=== PATIENT | female | born 1935 | race Asian ===

== ENCOUNTER → 2020-05-05 08:33 | Outpatient (ROUT) | payer MEDICARE, OTHER, MEDICAID, SELFPAY ==
[2020-05-05 09:59] LABS: Add Manual Diff / Slide Review NO; Basophils Absolute Auto 0 /uL (0-100); Basophils Percent Auto 0.7 % (0-2); Eosinophils Absolute Auto 100 /uL (0-450); Eosinophils Percent Auto 1.7 % (2-4); Hematocrit 40.3 % (36-46); Hemoglobin 13.5 g/dL (12.0-16.0); Lymphocytes Absolute Auto 1400 /uL (1100-4500); Lymphocytes Percent Auto 27.6 % (25-40); Mean Corpuscular HGB Conc 33.5 % (30-36); Mean Corpuscular Hemoglobin 32.8 PG (26-34); Mean Corpuscular Volume 97.8 fL (80-100); Monocytes Absolute Auto 400 /uL (0-900); Monocytes Percent Auto 7.6 % (3-14); Neutrophils Absolute Auto 3200 /uL (1500-7000); Neutrophils Percent Auto 62.4 % (50-75); Platelet Count 199 X10^3/uL (150-400); Red Blood Cell Count 4.12 X10^6/uL (4.0-5.2); Red Cell Distribution Width 14.1 % (11.6-14.8); White Blood Cell Count 5.1 X10^3/uL (4.5-11.0)
[2020-05-05 10:22] LABS: Alanine Aminotransferase 42 IU/L (<35); Albumin Globulin Ratio 1.3 (1.0-2.8); Alkaline Phosphatase 50 U/L (38-126); Aspartate Aminotransferase 40 IU/L (14-36); BUN Creatinine Ratio 25.8 (6-22); Bilirubin Total 0.6 mg/dL (0.2-1.3); Blood Urea Nitrogen 16 mg/dL (7-17); Calcium 9.4 mg/dL (8.4-10.2); Carbon Dioxide 29 mmol/L (22-32); Chloride 105 mmol/L (98-107); Cholesterol 223 mg/dL (140-199); Estimated Glomerular Filt Rate > 60.0 mL/min (>60); Globulin 3.1 g/dL (1.7-4.1); Glucose 90 mg/dL (80-110); HDL Cholesterol 81 mg/dL (40-60); HEMOLYSIS < 15 (0-50); LDL Cholesterol Calculated 123 mg/dL (<100); Potassium 3.8 mmol/L (3.4-5.1); Sodium 141 mmol/L (137-145); Total Protein 7.1 g/dL (6.3-8.2); Triglycerides 97 mg/dL (35-150)
[2020-05-05 10:50] LABS: Thyroid Stimulating Hormone 1.77 uIU/mL (0.47-4.68)
[2020-05-05 11:06] LABS: Vitamin B12 408 pg/mL (239-931)
== END ==
PROVIDERS: PCP Internal Medicine; Visit Provider Nurse Practitioner Family
DX: E03.9 Hypothyroidism, unspecified (principal); R41.89 Other symptoms and signs involving cognitive functions and awareness
CPT/HCPCS: 36415; 80053; 80061; 82607; 84443; 85025

== ENCOUNTER → 2020-05-08 12:48 | Outpatient (ROUT) | payer MEDICARE, OTHER, MEDICAID, SELFPAY ==
[2020-05-09 10:08] LABS: COVID19 Sendout Not Detected (Not Detected)
== END ==
PROVIDERS: PCP Internal Medicine; Visit Provider Internal Medicine
DX: Z11.59 Encounter for screening for other viral diseases (principal)
CPT/HCPCS: 87635

== ENCOUNTER 2020-07-25 19:01 | Emergency (ER) | payer OTHER, MEDICARE, MEDICAID, SELFPAY ==
[2020-07-25 19:21] VITALS: BP 199/81; PULSE 55; RESP 15; TEMP 36.6; O2SAT 100; BMI 16.6
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
[2020-07-25 21:00] VITALS: BP 224/93; PULSE 63; O2SAT 100
[2020-07-25 21:02] VITALS: BP 192/79; PULSE 57; RESP 16; O2SAT 99
[2020-07-25 21:19] VITALS: BP 182/73; PULSE 53; RESP 16; O2SAT 100
[2020-07-25 21:30] VITALS: BP 165/73; PULSE 56; RESP 16; O2SAT 100
== END 2020-07-25 21:58 | disposition home or self-care (01) ==
PROVIDERS: Emergency Provider Emergency Medicine; PCP Internal Medicine; Referring Provider Internal Medicine
DX: S00.03XA Contusion of scalp, initial encounter (principal); M54.2 Cervicalgia; W18.00XA Striking against unspecified object with subsequent fall, initial encounter; I10 Essential (primary) hypertension
CPT/HCPCS: 70450; 72125; 99284

== ENCOUNTER → 2020-11-17 10:13 | Outpatient (ROUT) | payer MEDICARE, OTHER, MEDICAID, SELFPAY ==
[2020-11-17 11:43] LABS: Add Manual Diff / Slide Review NO; Basophils Absolute Auto 100 /uL (0-100); Basophils Percent Auto 1.2 % (0-2); Eosinophils Absolute Auto 100 /uL (0-450); Eosinophils Percent Auto 3.2 % (2-4); Hematocrit 41.7 % (36-46); Hemoglobin 13.9 g/dL (12.0-16.0); Lymphocytes Absolute Auto 1400 /uL (1100-4500); Lymphocytes Percent Auto 32.3 % (25-40); Mean Corpuscular HGB Conc 33.4 % (30-36); Mean Corpuscular Hemoglobin 32.3 PG (26-34); Mean Corpuscular Volume 96.8 fL (80-100); Monocytes Absolute Auto 300 /uL (0-900); Monocytes Percent Auto 7.3 % (3-14); Neutrophils Absolute Auto 2400 /uL (1500-7000); Platelet Count 197 X10^3/uL (150-400); Red Blood Cell Count 4.31 X10^6/uL (4.0-5.2); Red Cell Distribution Width 14.1 % (11.6-14.8); White Blood Cell Count 4.4 X10^3/uL (4.5-11.0)
[2020-11-17 12:06] LABS: Alanine Aminotransferase 18 IU/L (<35); Albumin 4.2 g/dL (3.5-5.0); Albumin Globulin Ratio 1.4 (1.0-2.8); Alkaline Phosphatase 41 U/L (38-126); Aspartate Aminotransferase 31 IU/L (14-36); BUN Creatinine Ratio 25.4 (6-22); Bilirubin Total 0.6 mg/dL (0.2-1.3); Blood Urea Nitrogen 16 mg/dL (7-17); Calcium 9.5 mg/dL (8.4-10.2); Carbon Dioxide 29 mmol/L (22-32); Chloride 103 mmol/L (98-107); Cholesterol 246 mg/dL (140-199); Estimated Glomerular Filt Rate > 60.0 mL/min (>60); Globulin 3.1 g/dL (1.7-4.1); Glucose 90 mg/dL (80-110); HDL Cholesterol 77 mg/dL (40-60); HEMOLYSIS < 15 (0-50); LDL Cholesterol Calculated 146 mg/dL (<100); Potassium 3.8 mmol/L (3.4-5.1); Sodium 140 mmol/L (137-145); Total Protein 7.3 g/dL (6.3-8.2); Triglycerides 115 mg/dL (35-150)
[2020-11-17 13:48] LABS: Thyroid Stimulating Hormone 1.06 uIU/mL (0.47-4.68)
== END ==
PROVIDERS: PCP Internal Medicine; Visit Provider Internal Medicine
DX: E05.90 Thyrotoxicosis, unspecified without thyrotoxic crisis or storm (principal); E78.5 Hyperlipidemia, unspecified
CPT/HCPCS: 36415; 80053; 80061; 84443; 85025

== ENCOUNTER → 2021-03-10 17:21 | Outpatient (CLI) | payer MEDICARE, OTHER, MEDICAID, SELFPAY ==
[2021-03-10 18:19] LABS: Add Manual Diff / Slide Review NO; Basophils Absolute Auto 0 /uL (0-100); Eosinophils Absolute Auto 300 /uL (0-450); Eosinophils Percent Auto 5.6 % (2-4); Hematocrit 39.6 % (36-46); Lymphocytes Absolute Auto 1300 /uL (1100-4500); Lymphocytes Percent Auto 28.2 % (25-40); Mean Corpuscular HGB Conc 32.9 % (30-36); Mean Corpuscular Volume 97.2 fL (80-100); Monocytes Absolute Auto 400 /uL (0-900); Monocytes Percent Auto 9.7 % (3-14); Neutrophils Absolute Auto 2500 /uL (1500-7000); Neutrophils Percent Auto 55.5 % (50-75); Platelet Count 196 X10^3/uL (150-400); Red Blood Cell Count 4.08 X10^6/uL (4.0-5.2); Red Cell Distribution Width 13.9 % (11.6-14.8); White Blood Cell Count 4.6 X10^3/uL (4.5-11.0)
[2021-03-10 18:22] LABS: Alanine Aminotransferase 17 IU/L (<35); Albumin Globulin Ratio 1.3 (1.0-2.8); Alkaline Phosphatase 60 U/L (38-126); Aspartate Aminotransferase 29 IU/L (14-36); BUN Creatinine Ratio 28.1 (6-22); Bilirubin Total 0.7 mg/dL (0.2-1.3); Blood Urea Nitrogen 18 mg/dL (7-17); Calcium 9.6 mg/dL (8.4-10.2); Carbon Dioxide 27 mmol/L (22-32); Chloride 105 mmol/L (98-107); Estimated Glomerular Filt Rate > 60.0 mL/min (>60); Globulin 3.1 g/dL (1.7-4.1); Glucose 102 mg/dL (80-110); HEMOLYSIS < 15 (0-50); Potassium 4.2 mmol/L (3.4-5.1); Sodium 139 mmol/L (137-145); Total Protein 7.1 g/dL (6.3-8.2)
[2021-03-10 18:52] LABS: Thyroid Stimulating Hormone 0.159 uIU/mL (0.47-4.68)
== END ==
PROVIDERS: PCP Internal Medicine; Referring Provider Nurse Practitioner Family; Visit Provider Nurse Practitioner Family
DX: I45.9 Conduction disorder, unspecified; I49.9 Cardiac arrhythmia, unspecified
CPT/HCPCS: 36415; 80053; 84443; 85025; 93005

== ENCOUNTER → 2021-04-15 10:17 | Outpatient (CLI) | payer MEDICARE, MEDICAID, OTHER, SELFPAY | PROVIDERS: PCP Internal Medicine; Referring Provider Internal Medicine; Visit Provider Internal Medicine | DX: E04.2 Nontoxic multinodular goiter (principal); Z53.20 Procedure and treatment not carried out because of patient's decision for unspecified reasons ==

== ENCOUNTER → 2021-04-20 07:59 | Outpatient (ROUT) | payer MEDICARE, MEDICAID, OTHER, SELFPAY ==
[2021-04-20 09:16] LABS: Thyroid Stimulating Hormone 3.49 uIU/mL (0.47-4.68)
== END ==
PROVIDERS: PCP Internal Medicine; Visit Provider Nurse Practitioner Family
DX: E03.9 Hypothyroidism, unspecified (principal)
CPT/HCPCS: 36415; 84443

== ENCOUNTER → 2021-04-21 11:02 | Outpatient (CLI) | payer MEDICARE, OTHER, MEDICAID, SELFPAY ==
--- NOTE | 2021-04-21 | DI.US.S_ITS ---
PROCEDURE: US THYROID INDICATIONS: MULTIPLE THYROID NODULES TECHNIQUE: Real-time scanning was performed of the thyroid gland, with image documentation. COMPARISON: [facility], CT, CT CERVICAL SPINE WO CON, 07/25/2020, 21:02. FINDINGS: Right: Thyroid lobe measures 2.8 x 0.5 x 0.8 cm, and is homogeneous in echotexture. Left: Thyroid lobe measures 2.1 x 0.3 x 0.9 cm, and is homogenous in echotexture. Isthmus: 1.1 mm thick. IMPRESSION: Atrophic thyroid and no focal nodule seen. Dictated by: Gage Mireles [facility] Interpreted: Binu Pabon MD on 04/21/2021 at 11:42 Transcribed by: ANNA on 04/21/2021 at 11:43 Approved by: Binu Pabon M.D. on 04/21/2021 at 12:58
== END ==
PROVIDERS: PCP Internal Medicine; Referring Provider Internal Medicine; Visit Provider Internal Medicine
DX: E03.9 Hypothyroidism, unspecified (principal); E04.2 Nontoxic multinodular goiter
CPT/HCPCS: 76536

== ENCOUNTER 2021-08-09 19:29 | Emergency (ER) | payer MEDICARE, OTHER, MEDICAID, SELFPAY ==
[2021-08-09 19:33] VITALS: BP 196/81; PULSE 60; O2SAT 97
[2021-08-09 19:36] VITALS: BP 196/81; PULSE 60; RESP 16; TEMP 36.2; O2SAT 97; BMI 21.2
--- NOTE | 2021-08-09 19:42 | DI.RAD.S_ITS ---
PROCEDURE: XR HIP W PEL IF DONE RT 2V INDICATIONS: fall TECHNIQUE: AP pelvis with lateral view(s) of the right hip(s). COMPARISON: [facility], CR, XR FEMUR RT MIN 2V, 08/09/2021, 19:43. FINDINGS: Bones: Right superior and inferior pubic rami fractures with mild displacement. No hip fracture or dislocations. No widening of the pubic symphysis. Pelvic ring appears intact. No suspicious bony lesions. Soft tissues: The visualized bowel gas pattern is normal. No suspicious soft tissue calcifications. Calcification in the pelvis. Likely a calcified fibroid. Vascular calcifications. IMPRESSION: Right superior and inferior pubic rami fractures with mild displacement. Consider CT bony pelvis for further evaluation. Dictated by: Nick Buitrago M.D. on 08/09/2021 at 21:02 Approved by: Nick Buitrago M.D. on 08/09/2021 at 21:04
--- NOTE | 2021-08-09 19:42 | DI.CT.S_ITS ---
PROCEDURE: CT HEAD/BRAIN WO CON INDICATIONS: fall TECHNIQUE: Noncontrast 4.5 mm thick angled axial sections acquired from the foramen magnum to the vertex, with coronal and sagittal reformats. For radiation dose reduction, the following was used: automated exposure control, adjustment of mA and/or kV according to patient size. COMPARISON: [facility], CT, CT HEAD/BRAIN WO CON, 07/25/2020, 21:02. FINDINGS: Image quality: Excellent. CSF spaces: Basal cisterns are patent. No extra-axial fluid collections. Ventricles are normal in size and shape. Brain: No midline shift. No intracranial masses or hemorrhage. No area of hypodensity in a large vascular distribution to suggest acute infarction. Periventricular hypodensity consistent with chronic microvascular ischemic change. Age-related parenchymal loss. Skull and face: Small right parietal scalp hematoma. No underlying fracture. Calvarium and visualized facial bones are intact, without suspicious lesions. Sinuses: Visualized sinuses and mastoids are clear. IMPRESSION: No acute intracranial abnormality. Small right parietal scalp hematoma. Dictated by: Nick Buitrago M.D. on 08/09/2021 at 20:47 Approved by: Nick Buitrago M.D. on 08/09/2021 at 20:48
--- NOTE | 2021-08-09 19:42 | DI.RAD.S_ITS ---
PROCEDURE: XR FEMUR RT MIN 2V INDICATIONS: fall TECHNIQUE: 4 views of the femur were acquired. COMPARISON: [facility], CR, XR HIP W PEL IF DONE RT 2V, 08/09/2021, 19:43. FINDINGS: Bones: No right femur fracture. No suspicious bony lesions. Soft tissues: No suspicious soft tissue calcifications or masses. Vascular calcifications. IMPRESSION: No right femur fracture. Dictated by: Nick Buitrago M.D. on 08/09/2021 at 21:00 Approved by: Nick Buitrago M.D. on 08/09/2021 at 21:02
[2021-08-09 21:06] VITALS: BP 204/84; PULSE 55; O2SAT 91
[2021-08-09 21:30] VITALS: PULSE 57; O2SAT 97
[2021-08-09] MEDS: HYDROCODONE/ACET 5/325 TABLET 1 TAB PO (21:31)
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
[2021-08-09] MEDS: TRAMADOL 50 MG PREPACK 1 BOTTLE MISC (21:49)
--- NOTE | 2021-08-09 22:32 | PC.NURSE ---
report called to [facility]. daughter Jessie came to pick pt up. pt assisted out to vehicle in wheelchair. tolerated well.
== END 2021-08-09 22:33 | disposition home or self-care (01) ==
PROVIDERS: Emergency Provider Emergency Medicine; PCP Internal Medicine
DX: S32.511A Fracture of superior rim of right pubis, initial encounter for closed fracture (principal); S32.591A Other specified fracture of right pubis, initial encounter for closed fracture; S00.03XA Contusion of scalp, initial encounter; Y04.2XXA Assault by strike against or bumped into by another person, initial encounter
CPT/HCPCS: 70450; 73502; 73552; 99284

== ENCOUNTER 2021-08-21 08:38 | Emergency (ER) | payer MEDICARE, OTHER, MEDICAID, SELFPAY ==
[2021-08-21] VITALS (21 sets, daily range): BP systolic 170–225; BP diastolic 75–91; PULSE 60–79; RESP 12–23; TEMP 36.6; O2SAT 93–100; BMI 18.9
--- NOTE | 2021-08-21 08:44 | DI.CT.S_ITS ---
PROCEDURE: CT CERVICAL SPINE WO CON INDICATIONS: fall TECHNIQUE: Noncontrast 3 mm thick sections acquired from the skull base to the T4 level. Sagittal and coronal reformats were then constructed. For radiation dose reduction, the following was used: automated exposure control, adjustment of mA and/or kV according to patient size. COMPARISON: [facility], CT, CT CERVICAL SPINE WO CON, 07/25/2020, 21:02. FINDINGS: Image quality: Excellent. Bones: No fractures or dislocations. Stable degenerative retrolisthesis of C5 on C6. Multilevel degenerative changes of the spine not significantly changed from comparison. Multiple levels of very mild spinal canal stenosis worse at C3-C4 through C5-C6. Multiple levels of mild bony neural foraminal stenosis. Visualized superior ribs are intact. Soft tissues: Prevertebral soft tissues are normal in thickness. No paravertebral hematomas. No apical pneumothoraces. Diminutive appearance of the thyroid gland versus surgically absent. Diffuse vascular calcifications noted throughout the imaged vasculature. There is is worse at the carotid bifurcations. IMPRESSION: No acute fracture or traumatic subluxation. Multilevel cervical spondylopathy. Dictated by: Diony Jhaveri D.O. on 08/21/2021 at 8:37 Approved by: Diony Jhaveri D.O. on 08/21/2021 at 8:43
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
--- NOTE | 2021-08-21 08:44 | ED.FALL ---
HPI - Fall General Chief Complaint: Fall Stated Complaint: GLF Time Seen by Provider: 08/21/21 08:44 Source: patient Mode of arrival: EMS Limitations: altered mental status (dementia) History of Present Illness HPI Narrative: This is a 86-year-old female with known dementia, history of dyslipidemia, on aspirin daily and a prior pelvic fracture with fracture of the right superior and inferior pubic rami. Patient had a ground level fall which was 1 witnessed. Patient does have dementia but states that she slipped on a piece of fabric or something on the floor and fell backwards. She does not think that she hit her head. She denies any neck pain or upper back pain but does have some right hip/lower back discomfort. Patient has good range of motion. She denies any numbness or tingling. She denies any chest pain, shortness of breath or nausea or vomiting. She is able to tell me she takes a cholesterol medication. She denies any prior surgeries herself. Her medication list indicates she also has a history of hypothyroidism and takes [place] and lorazepam regularly. Patient lives at a care facility. Related Data Allergies Allergy/AdvReac Type Severity Reaction Status Date / Time No Known Drug Allergies Allergy Verified 07/25/20 19:21 Review of Systems Review of Systems ROS Unobtainable: Unobtainable due to medical condition Patient History Social History marital status: Smoking Status: Never smoker Exam Narrative Exam Narrative: GEN: C-collar prior to arrival. Patient appears in mild distress. HEAD: No evidence of trauma, no raccoon/Mcguire sign. NECK: Nontender, painless range of motion, trachea midline Positive Nexus criteria, no mid line tenderness, distracting injury, altered mental status-patient has dementia but per report is at baseline, neuro deficit, recent EtOH. EYES: PERRLA, EOMI ENT: External inspection alf except for a very small superficial laceration at the corner of the right edge of the mouth. There is a small amount of dried blood, trachea is midline, TM's are normal no hemotypanum, Nares are clear, no septal hematoma, no dental or oral injury, airway is normal and with normal occlusion, No bony tenderness RESP: Chest is nontender and has symmetric movement, no ecchymosis, breath sounds are normal no crackles, wheezes or rales CVS: Heart sounds are normal, no murmur noted, No JVD. ABG/GI: Nontender, soft, normal bowel sounds, no distention, no organomegaly, pelvic rock is negative NEURO: Oriented AOx3, neuro is grossly intact, sensation and motor is normal all 4 extremities moving, cranial nerves II through XII are intact, GCS is[default value] PSYCH: Normal mood and affect SKIN: Intact, warm and dry, no crepitus and without decubitus BACK: No CVA tenderness, no vertebral tenderness, no step-off's, no crepitus EXT: Atraumatic, hips are nontender palpation, no pedal edema, normal color and temperature, normal range of motion of extremities with normal tendon exam, 2+ pulses in all four extremities Initial Vital Signs Initial Vital Signs: Vital Signs Temperature 97.8 F 08/21/21 08:36 Pulse Rate 65 08/21/21 08:36 Respiratory Rate 18 08/21/21 08:36 Blood Pressure 206/91 H 08/21/21 08:36 Pulse Oximetry 99 08/21/21 08:36 Scores GCS Cary coma scale eye opening: Spontaneous Cary coma scale verbal response: Confused Cary coma scale motor response: Obey commands Cary coma scale total score: 14 Course Orders Ordered: ED Orders 08/21/21 08:44 CT cervical spine wo con Stat CT head/brain wo con Stat XR hip w pel if done RT 2V Stat 08/21/21 09:51 CT pelvis wo con Stat 08/21/21 10:00 BMP [Basic Metabolic Panel] Stat CBC Auto Diff [Complete Blood Count AUTO DIFF] Stat Discontinued Medications Hydrocodone Bitart/Acetaminophen (Hydrocodone/Acet 5/325 Tablet) 1 tab PO NOW ONE Stop: 08/21/21 08:51 Last Admin: 08/21/21 09:00 Dose: 1 tab Documented by: [facility] Consultations Consultation #1: Dr. Cuevas, orthopedic surgery. Images reviewed. Toe touch on right side weightbearing with walker. If cannot do that then failing sometimes [facility] will consider putting in an SI screw but this would only if patient continues to be failing. Would be unlikely to place a screw and based on patient's history they may still not in the future. Vital Signs Vital signs: Vital Signs - 8 hr 08/21/21 08:36 08/21/21 08:46 08/21/21 08:48 Temperature 97.8 F Pulse Rate 65 68 67 Respiratory Rate 18 14 Blood Pressure 206/91 H 225/89 H Pulse Oximetry 99 98 99 08/21/21 08:49 08/21/21 09:00 08/21/21 09:23 Temperature Pulse Rate 71 74 63 Respiratory Rate 14 16 13 Blood Pressure 206/91 H 197/86 H 201/84 H Pulse Oximetry 99 96 99 08/21/21 09:30 08/21/21 09:45 08/21/21 10:00 Temperature Pulse Rate 66 74 70 Respiratory Rate 18 18 18 Blood Pressure 190/77 H 170/75 H Pulse Oximetry 99 100 100 08/21/21 10:16 08/21/21 10:30 08/21/21 10:32 Temperature Pulse Rate 79 75 66 Respiratory Rate 21 20 Blood Pressure Pulse Oximetry 99 93 99 08/21/21 10:34 08/21/21 10:46 08/21/21 10:55 Temperature Pulse Rate 67 71 72 Respiratory Rate 20 23 21 Blood Pressure 197/80 H 184/78 H Pulse Oximetry 99 100 100 08/21/21 11:00 08/21/21 11:30 08/21/21 12:00 Temperature Pulse Rate 70 72 69 Respiratory Rate 13 12 22 Blood Pressure 176/77 H Pulse Oximetry 98 99 99 08/21/21 12:54 08/21/21 12:55 08/21/21 13:00 Temperature Pulse Rate 62 60 Respiratory Rate 21 14 Blood Pressure 195/82 H Pulse Oximetry 95 99 100 - Fall Lab Data Result diagrams: 08/21/21 10:00 08/21/21 10:00 Labs: Lab Results 08/21/21 08/21/21 Range/Units 10:00 10:00 WBC 9.9 (4.5-11.0) X10^3/uL RBC 3.69 L (4.0-5.2) X10^6/uL Hgb 12.0 (12.0-16.0) g/dL Hct 35.5 L (36-46) % MCV 96.2 (80-100) fL MCH 32.5 (26-34) PG MCHC 33.7 (30-36) % RDW 13.9 (11.6-14.8) % Plt Count 388 (150-400) X10^3/uL Neut % (Auto) 80.0 H (50-75) % Lymph % (Auto) 12.2 L (25-40) % Gibson % (Auto) 6.9 (3-14) % Eos % (Auto) 0.5 L (2-4) % Baso % (Auto) 0.4 (0-2) % Neut # (Auto) 7900 H (9726-4365) /uL Lymph # (Auto) 1200 (5874-9292) /uL Gibson # (Auto) 700 (0-900) /uL Eos # (Auto) 0 (0-450) /uL Baso # (Auto) 0 (0-100) /uL Sodium 136 L (137-145) mmol/L Potassium 3.9 (3.4-5.1) mmol/L Chloride 101 (98-107) mmol/L Carbon Dioxide 31 (22-32) mmol/L BUN 21 H (7-17) mg/dL Creatinine 0.66 (0.52-1.04) mg/dL Estimated GFR > 60.0 (>60) mL/min BUN/Creatinine Ratio 31.8 H (6-22) Glucose 128 H (80-110) mg/dL Calcium 9.2 (8.4-10.2) mg/dL Imaging Data CT scan - head: Radiologist's Impression: [address] [address] [address] Scan Report Signed Patient: Nadeen Liz MR#: [id number] : 1935 Acct:[id number] Age/Sex: 86 / F Date of Service: 08/21/21 Loc: ED Accession Number: [id number] ?? Procedure: CT head/brain wo con Ordering Provider: Theresa Jimenes D.O. PROCEDURE:? CT HEAD/BRAIN WO CON ? INDICATIONS:? fall, hit head on asa ? TECHNIQUE:? Noncontrast 4.5 mm thick angled axial sections acquired from the foramen magnum to the vertex, with coronal and sagittal reformats.? For radiation dose reduction, the following was used:? automated exposure control, adjustment of mA and/or kV according to patient size.? ? COMPARISON:? [facility], CT, CT HEAD/BRAIN WO CON, 08/09/2021, 20:04. ? FINDINGS:? Image quality:? Excellent.? ? CSF spaces:? Basal cisterns are patent.? No extra-axial fluid collections.? The ventricles are symmetric in size and shape.? ? Brain:? No intracranial bleeds or masses.? There is cerebral volume loss for age, with resultant ventricular and sulcal prominence.? There are periventricular and deep white matter chronic small vessel ischemic changes.? There is intracranial internal carotid artery atherosclerosis.? ? Skull and face:? Calvarium and visualized facial bones appear intact, without suspicious lesions.? Small right parietal scalp hematoma again identified. ? Sinuses:? Visualized sinuses and mastoids are clear.? ? IMPRESSION:? ? No acute intracranial abnormality. ? Small right parietal scalp hematoma again visualized. ? Microvascular ischemic changes and cerebral volume loss. ? ? Dictated by: Diony Jhaveri D.O. on 08/21/2021 at 8:33 ? ? Approved by: Diony Jhaveri D.O. on 08/21/2021 at 8:37?? CT - cervical spine: Radiologist's Impression: Close Hip X-Ray (Signed) Jhaveri,Diony - 08/21/[address] (Signed) Jhaveri,Diony - 08/21/[address] (Signed) Jhaveri,Diony 08/21/21 Hip X-Ray (Signed) Call,Nick - 08/09/[address] (Signed) Call,Nick - 08/09/21 Femur X-Ray (Signed) Call,Nick 08/09/21 Thyroid Ultrasound (Signed) Damon Mireles - 04/21/[address] (Signed) Pritesh Padron - 07/25/[address] (Signed) Pritesh Padron - 07/25/20 Launch?[address] [address] [address] Scan Report Signed Patient: Nadeen Liz MR#: [id number] : 1935 Acct:[id number] Age/Sex: 86 / F Date of Service: 08/21/21 Loc: ED Accession Number: [id number] ?? Procedure: CT cervical spine wo con Ordering Provider: Theresa Jimenes D.O. PROCEDURE:? CT CERVICAL SPINE WO CON ? INDICATIONS:? fall ? TECHNIQUE:? Noncontrast 3 mm thick sections acquired from the skull base to the T4 level.? Sagittal and coronal reformats were then constructed.? For radiation dose reduction, the following was used:? automated exposure control, adjustment of mA and/or kV according to patient size.? ? COMPARISON:? [facility], CT, CT CERVICAL SPINE WO CON, 07/25/2020, 21:02. ? FINDINGS:? Image quality:? Excellent.? ? Bones:? No fractures or dislocations.? Stable degenerative retrolisthesis of C5 on C6.? Multilevel degenerative changes of the spine not significantly changed from comparison.? Multiple levels of very mild spinal canal stenosis worse at C3-C4 through C5-C6.? Multiple levels of mild bony neural foraminal stenosis.? Visualized superior ribs are intact.? ? Soft tissues:? Prevertebral soft tissues are normal in thickness.? No paravertebral hematomas.? No apical pneumothoraces.? Diminutive appearance of the thyroid gland versus surgically absent.? Diffuse vascular calcifications noted throughout the imaged vasculature.? There is is worse at the carotid bifurcations. ? ? IMPRESSION:? ? No acute fracture or traumatic subluxation. ? Multilevel cervical spondylopathy. ? ? Dictated by: Diony Jhaveri D.O. on 08/21/2021 at 8:37 ? ? Approved by: Diony Jhaveri D.O. on 08/21/2021 at 8:43 pelvis: Radiologist's Impression: [place] [address] XRay Report Signed Patient: Nadeen Liz MR#: [id number] : 1935 Acct:[id number] Age/Sex: 86 / F Date of Service: 08/21/21 Loc: ED Accession Number: [id number] ?? Procedure: XR hip w pel if done RT 2V Ordering Provider: Theresa Jimenes D.O. PROCEDURE:? XR HIP W PEL IF DONE RT 2V ? INDICATIONS:? fall, right hip pain, prior pelvic fx. normal movement ? TECHNIQUE:? To views of the hip were acquired.? ? COMPARISON:? [facility], CR, XR HIP W PEL IF DONE RT 2V, 08/09/2021, 19:43. ? FINDINGS:? ? Given differences in technique there is increased displacement of the previously noted fractures of the superior and inferior pubic ramus.? No additional fractures are identified.? Mild degenerative changes of the hips.? Vascular calcifications. ? IMPRESSION:? ? Increased displacement of the previously noted right superior and inferior pubic ramus fractures. ? ? Dictated by: Diony Jhaveri D.O. on 08/21/2021 at 8:31 ? ? Approved by: Diony Jhaveri D.O. on 08/21/2021 at 8:33?? pelvic CT: Radiologist's Impression: [place] [address] CT Scan Report Signed Patient: Nadeen Liz MR#: [id number] : 1935 Acct:[id number] Age/Sex: 86 / F Date of Service: 08/21/21 Loc: ED Accession Number: [id number] ?? Procedure: CT pelvis wo con Ordering Provider: Theresa Jimenes D.O. PROCEDURE:? CT PEL WO CON ? INDICATIONS:? fall, ? increased displacement on xray of prior fx. ? TECHNIQUE:? Noncontrast 3 mm axial sections acquired through the bony pelvis, with coronal and sagittal reformatting.? ? COMPARISON:? None. ? FINDINGS:? Image quality:? Excellent.? ? Bones:? There is displaced and comminuted fractures of the right superior and inferior pubic ramus.? This includes approximately 1.8 cm of inferior displacement of the superior pubic ramus and approximately 7 mm of posterior displacement of the inferior pubic ramus. ?There is mildly displaced fracturing of the right side of the sacrum extending into the sacroiliac joint.? No hip fracture identified.? Degenerative changes of the hips and spine. ? Soft tissues:? There is dense stool distending the distal sigmoid colon and rectum with wall thickening and adjacent inflammation concerning for stercoral colitis. Calcified uterus displaced by stool.? Diffuse vascular calcifications throughout the imaged vessels.? No aneurysm.? The bladder is decompressed.? ? ? IMPRESSION:? ? Displaced comminuted fractures of the right superior and inferior pubic ramus as well as displaced fracture of the right sacrum extending into the sacroiliac joint. ? 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 ? ? ? Dictated by: Diony Jhaveri D.O. on 08/21/2021 at 10:28 ? ? Approved by: Diony Jhaveri D.O. on 08/21/2021 at 10:35?? MDM Narrative Medical decision making narrative: This is an 86-year-old female comes to the emergency department for ground level fall. Patient has a history dementia and multiple falls. She has recent on 08/09/2021 diagnosed with right superior and inferior pubic rami fractures with mild displacement. Patient had unwitnessed fall today she states she slipped on something slippery on the ground such as a piece of cloth. Unclear if she had head injury she has a very small laceration at the edge of her mouth. But does not have any other obvious injury but patient does not recall. Head CT and C-spine were ordered. Patient was complaining of lower back pain but is nontender on exam and grabs at her right hip. She has good range of motion and this may be secondary to her pubic rami fractures but x-ray imaging was obtained. CT notes continued right inferior and superior pubic rami fractures right sacral fracture is noted. This was not appreciated on x-rays from today or prior so unclear if this is a new fracture or was already present. Patient has mild pain here in the department. Images were reviewed with Orthopedic surgery. She has had multiple falls even before she had her injury. They recommend toe-touch weight-bearing at this time. If patient tolerates this she does not require any additional intervention. If she has worsening symptoms she might potentially be a candidate for an SI joint screw but based on patient's history Dr. Anderson notes that this may not actually be offered. Discharge Plan Departure Patient Disposition: Home Clinical Impression: Closed fracture of right inferior pubic ramus, Closed fracture of right superior pubic ramus, Closed sacral fracture Instructions: DI for Pelvic Fracture Activity Restrictions/Additional Instructions: Your imaging today shows pubic rami fracture still present. A CT was performed and does show a sacral fracture. It is unclear if this is new or was present from her prior fall. It was discussed with Orthopedic surgery. Recommendations at this time include toe-touch weight-bearing and using a walker if patient is able to be compliant. If she has significantly worsening symptoms she MAY be a candidate for a screw to be placed in the SI joint. Continue pain medications as prescribed. Please return for new or worsening symptoms, increasing pain, weakness, loss of sensation, loss of bowel or bladder control or other concerning symptoms. Referrals: Melissa Cuevas MD [Physician] - Maylin Wilson MD [Primary Care Provider] -
[2021-08-21] MEDS: HYDROCODONE/ACET 5/325 TABLET 1 TAB PO (09:00)
--- NOTE | 2021-08-21 09:51 | DI.CT.S_ITS ---
PROCEDURE: CT PEL WO CON INDICATIONS: fall, ? increased displacement on xray of prior fx. TECHNIQUE: Noncontrast 3 mm axial sections acquired through the bony pelvis, with coronal and sagittal reformatting. COMPARISON: None. FINDINGS: Image quality: Excellent. Bones: There is displaced and comminuted fractures of the right superior and inferior pubic ramus. This includes approximately 1.8 cm of inferior displacement of the superior pubic ramus and approximately 7 mm of posterior displacement of the inferior pubic ramus. There is mildly displaced fracturing of the right side of the sacrum extending into the sacroiliac joint. No hip fracture identified. Degenerative changes of the hips and spine. Soft tissues: There is dense stool distending the distal sigmoid colon and rectum with wall thickening and adjacent inflammation concerning for stercoral colitis. Calcified uterus displaced by stool. Diffuse vascular calcifications throughout the imaged vessels. No aneurysm. The bladder is decompressed. IMPRESSION: Displaced comminuted fractures of the right superior and inferior pubic ramus as well as displaced fracture of the right sacrum extending into the sacroiliac joint. 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 Dictated by: Diony Jhaveri D.O. on 08/21/2021 at 10:28 Approved by: Diony Jhaveri D.O. on 08/21/2021 at 10:35
[2021-08-21 10:07] LABS: Add Manual Diff / Slide Review NO; Basophils Absolute Auto 0 /uL (0-100); Basophils Percent Auto 0.4 % (0-2); Eosinophils Absolute Auto 0 /uL (0-450); Eosinophils Percent Auto 0.5 % (2-4); Hematocrit 35.5 % (36-46); Lymphocytes Absolute Auto 1200 /uL (1100-4500); Lymphocytes Percent Auto 12.2 % (25-40); Mean Corpuscular HGB Conc 33.7 % (30-36); Mean Corpuscular Hemoglobin 32.5 PG (26-34); Mean Corpuscular Volume 96.2 fL (80-100); Monocytes Absolute Auto 700 /uL (0-900); Monocytes Percent Auto 6.9 % (3-14); Neutrophils Absolute Auto 7900 /uL (1500-7000); Platelet Count 388 X10^3/uL (150-400); Red Blood Cell Count 3.69 X10^6/uL (4.0-5.2); Red Cell Distribution Width 13.9 % (11.6-14.8); White Blood Cell Count 9.9 X10^3/uL (4.5-11.0)
[2021-08-21 10:18] LABS: BUN Creatinine Ratio 31.8 (6-22); Blood Urea Nitrogen 21 mg/dL (7-17); Calcium 9.2 mg/dL (8.4-10.2); Carbon Dioxide 31 mmol/L (22-32); Chloride 101 mmol/L (98-107); Estimated Glomerular Filt Rate > 60.0 mL/min (>60); Glucose 128 mg/dL (80-110); HEMOLYSIS < 15 (0-50); Potassium 3.9 mmol/L (3.4-5.1); Sodium 136 mmol/L (137-145)
--- NOTE | 2021-08-21 10:21 | PC.NURSE ---
brooke daughter [phone] update given over phone
--- NOTE | 2021-08-21 12:45 | PC.NURSE ---
Spoke with daughter, Hillary [phone]. Provided update. Called for S transport back to [facility] [place]. Spoke to Elvia @ [facility], gave nurse to nurse report. Elvia aware we recommend a walker, Elvia states pt will not use a walker. advised.
== END 2021-08-21 13:13 | disposition home or self-care (01) ==
PROVIDERS: Emergency Provider Emergency Medicine; PCP Internal Medicine
DX: S32.511A Fracture of superior rim of right pubis, initial encounter for closed fracture (principal); S32.591A Other specified fracture of right pubis, initial encounter for closed fracture; S32.10XA Unspecified fracture of sacrum, initial encounter for closed fracture; S01.411A Laceration without foreign body of right cheek and temporomandibular area, initial encounter; W01.0XXA Fall on same level from slipping, tripping and stumbling without subsequent striking against object, initial encounter; Z91.81 History of falling
CPT/HCPCS: 36415; 70450; 72125; 72192; 73502; 80048; 85025; 99284; 99285

== ENCOUNTER → 2021-12-09 17:26 | Outpatient (ROUT) | payer MEDICARE, OTHER, MEDICAID, SELFPAY ==
[2021-12-09 17:35] LABS: Add Manual Diff / Slide Review NO; Basophils Absolute Auto 100 /uL (0-100); Basophils Percent Auto 0.9 % (0-2); Eosinophils Absolute Auto 200 /uL (0-450); Eosinophils Percent Auto 3.6 % (2-4); Hematocrit 36.4 % (36-46); Hemoglobin 12.1 g/dL (12.0-16.0); Lymphocytes Absolute Auto 1600 /uL (1100-4500); Mean Corpuscular HGB Conc 33.3 % (30-36); Mean Corpuscular Hemoglobin 31.9 PG (26-34); Mean Corpuscular Volume 95.8 fL (80-100); Monocytes Absolute Auto 400 /uL (0-900); Monocytes Percent Auto 5.9 % (3-14); Neutrophils Absolute Auto 3800 /uL (1500-7000); Neutrophils Percent Auto 63.6 % (50-75); Platelet Count 247 X10^3/uL (150-400); Red Cell Distribution Width 13.7 % (11.6-14.8)
[2021-12-09 17:44] LABS: BUN Creatinine Ratio 23.1 (6-22); Blood Urea Nitrogen 15 mg/dL (7-17); Carbon Dioxide 25 mmol/L (22-32); Chloride 105 mmol/L (98-107); Estimated Glomerular Filt Rate > 60 mL/min (>60); Glucose 144 mg/dL (80-110); HEMOLYSIS < 15 (0-50); Potassium 4.2 mmol/L (3.4-5.1); Sodium 139 mmol/L (137-145)
[2021-12-09 18:15] LABS: Thyroid Stimulating Hormone 9.04 uIU/mL (0.47-4.68)
== END ==
PROVIDERS: PCP Internal Medicine; Visit Provider Internal Medicine
DX: R84 Abnormal findings in specimens from respiratory organs and thorax (principal)
CPT/HCPCS: 80048; 84443; 85025

== ENCOUNTER → 2022-01-25 08:14 | Outpatient (ROUT) | payer MEDICARE, OTHER, MEDICAID, SELFPAY ==
[2022-01-25 09:47] LABS: Thyroid Stimulating Hormone 3.61 uIU/mL (0.47-4.68)
== END ==
PROVIDERS: PCP Internal Medicine; Visit Provider Internal Medicine
DX: E03.9 Hypothyroidism, unspecified (principal)
CPT/HCPCS: 36415; 84443

== ENCOUNTER → 2022-07-05 07:29 | Outpatient (ROUT) | payer MEDICARE, OTHER, MEDICAID, SELFPAY ==
[2022-07-05 07:55] LABS: Add Manual Diff / Slide Review NO; Basophils Absolute Auto 0 /uL (0-100); Basophils Percent Auto 0.6 % (0-2); Eosinophils Absolute Auto 100 /uL (0-450); Eosinophils Percent Auto 1.9 % (2-4); Hematocrit 37.5 % (36-46); Hemoglobin 12.5 g/dL (12.0-16.0); Lymphocytes Absolute Auto 1300 /uL (1100-4500); Lymphocytes Percent Auto 21.8 % (25-40); Mean Corpuscular HGB Conc 33.5 % (30-36); Mean Corpuscular Hemoglobin 31.9 PG (26-34); Mean Corpuscular Volume 95.4 fL (80-100); Monocytes Absolute Auto 500 /uL (0-900); Monocytes Percent Auto 8.1 % (3-14); Neutrophils Absolute Auto 4000 /uL (1500-7000); Neutrophils Percent Auto 67.6 % (50-75); Platelet Count 195 X10^3/uL (150-400); Red Blood Cell Count 3.93 X10^6/uL (4.0-5.2); Red Cell Distribution Width 14.3 % (11.6-14.8); White Blood Cell Count 5.9 X10^3/uL (4.5-11.0)
[2022-07-05 08:22] LABS: BUN Creatinine Ratio 22.5 (6-22); Blood Urea Nitrogen 16 mg/dL (7-17); Calcium 8.9 mg/dL (8.4-10.2); Carbon Dioxide 31 mmol/L (22-32); Chloride 102 mmol/L (98-107); Estimated Glomerular Filt Rate > 60 mL/min (>60); Glucose 98 mg/dL (80-110); HEMOLYSIS < 15 (0-50); Potassium 4.4 mmol/L (3.4-5.1); Sodium 138 mmol/L (137-145)
== END ==
PROVIDERS: PCP Internal Medicine; Visit Provider Nurse Practitioner Gerontology
DX: I10 Essential (primary) hypertension (principal)
CPT/HCPCS: 36415; 80048; 85025

== ENCOUNTER → 2022-09-20 09:49 | Outpatient (ROUT) | payer MEDICARE, OTHER, MEDICAID, SELFPAY ==
[2022-09-20 10:16] LABS: Add Manual Diff / Slide Review NO; Basophils Absolute Auto 0 /uL (0-100); Eosinophils Absolute Auto 200 /uL (0-450); Eosinophils Percent Auto 3.5 % (2-4); Hematocrit 40.6 % (36-46); Hemoglobin 13.2 g/dL (12.0-16.0); Lymphocytes Absolute Auto 1400 /uL (1100-4500); Lymphocytes Percent Auto 32.7 % (25-40); Mean Corpuscular HGB Conc 32.6 % (30-36); Mean Corpuscular Volume 98.1 fL (80-100); Monocytes Absolute Auto 400 /uL (0-900); Monocytes Percent Auto 8.3 % (3-14); Neutrophils Absolute Auto 2300 /uL (1500-7000); Neutrophils Percent Auto 54.5 % (50-75); Platelet Count 224 X10^3/uL (150-400); Red Blood Cell Count 4.14 X10^6/uL (4.0-5.2); Red Cell Distribution Width 14.1 % (11.6-14.8); White Blood Cell Count 4.3 X10^3/uL (4.5-11.0)
[2022-09-20 10:45] LABS: Alanine Aminotransferase 17 IU/L (<35); Albumin 4.1 g/dL (3.5-5.0); Albumin Globulin Ratio 1.2 (1.0-2.8); Alkaline Phosphatase 45 U/L (38-126); Aspartate Aminotransferase 26 IU/L (14-36); BUN Creatinine Ratio 29.3 (6-22); Bilirubin Total 0.7 mg/dL (0.2-1.3); Blood Urea Nitrogen 17 mg/dL (7-17); Calcium 9.1 mg/dL (8.4-10.2); Carbon Dioxide 27 mmol/L (22-32); Chloride 105 mmol/L (98-107); Cholesterol 301 mg/dL (140-199); Estimated Glomerular Filt Rate > 60 mL/min (>60); Globulin 3.5 g/dL (1.7-4.1); Glucose 93 mg/dL (80-110); HDL Cholesterol 75 mg/dL (40-60); HEMOLYSIS < 15 (0-50); LDL Cholesterol Calculated 206 mg/dL (<100); Potassium 3.7 mmol/L (3.4-5.1); Sodium 140 mmol/L (137-145); Total Protein 7.6 g/dL (6.3-8.2); Triglycerides 99 mg/dL (35-150)
[2022-09-20 10:59] LABS: Vitamin D 25 Hydroxy (D3) 29.4 ng/mL (30.0-100.0)
[2022-09-20 11:13] LABS: Thyroid Stimulating Hormone 8.91 uIU/mL (0.47-4.68)
== END ==
PROVIDERS: PCP Internal Medicine; Visit Provider Nurse Practitioner Gerontology
DX: E03.9 Hypothyroidism, unspecified (principal); I10 Essential (primary) hypertension; E78.5 Hyperlipidemia, unspecified; E55.9 Vitamin D deficiency, unspecified
CPT/HCPCS: 36415; 80053; 80061; 82306; 84443; 85025

== ENCOUNTER → 2022-10-03 16:52 | Outpatient (CLI) | payer MEDICARE, OTHER, MEDICAID, SELFPAY ==
--- NOTE | 2022-10-03 16:56 | DI.US.S_ITS ---
PROCEDURE: US THYROID INDICATIONS: ENLARGED THYROID OR NODULE TECHNIQUE: Real-time scanning was performed of the thyroid gland, with image documentation. COMPARISON: [facility], US, US THYROID, 04/21/2021, 11:11. FINDINGS: Right: Thyroid lobe measures 3.2 x 0.6 x 0.8 cm, and is homogeneous in echotexture. Left: Thyroid lobe measures 1.8 x 0.3 x 0.9 cm, and is homogenous in echotexture. Isthmus: 1 mm thick. The right thyroid is hypervascular. The left thyroid appears atrophic. No focal nodules are seen. IMPRESSION: No focal nodules are seen. Atrophic left thyroid. Hypervascular right thyroid lobe. ACR TI-RADS definitions and recommendations: TI-RADS 1 (benign): 0 points. FNA not needed. TI-RADS 2 (not suspicious): 2 points. FNA not needed. TI-RADS 3 (mildly suspicious): 3 points. * FNA if 2.5 cm or larger, follow up if 1.5 cm or larger (at 1, 3, and 5 years). TI-RADS 4 (moderately suspicious): 4-6 points. * FNA if 1.5 cm or larger, follow up if 1 cm or larger (at 1, 2, 3, and 5 years). TI-RADS 5 (highly suspicious): 7 points or more. * FNA if 1 cm or larger, follow up if 0.5 cm or larger (every year for 5 years). Dictated by: Bayron Degroot M.D. on 10/03/2022 at 18:06 Approved by: Bayron Degroot M.D. on 10/03/2022 at 18:07
== END ==
PROVIDERS: PCP Internal Medicine; Referring Provider Nurse Practitioner Gerontology; Visit Provider Nurse Practitioner Gerontology
DX: E03.9 Hypothyroidism, unspecified (principal); E07.89 Other specified disorders of thyroid; E03.4 Atrophy of thyroid (acquired); E78.5 Hyperlipidemia, unspecified; E55.9 Vitamin D deficiency, unspecified; I10 Essential (primary) hypertension
CPT/HCPCS: 76536

== ENCOUNTER → 2022-11-08 08:23 | Outpatient (ROUT) | payer MEDICARE, OTHER, MEDICAID, SELFPAY ==
[2022-11-08 08:52] LABS: Cholesterol 287 mg/dL (140-199); HDL Cholesterol 76 mg/dL (40-60); LDL Cholesterol Calculated 191 mg/dL (<100); Triglycerides 100 mg/dL (35-150)
[2022-11-08 09:20] LABS: Thyroid Stimulating Hormone 5.11 uIU/mL (0.47-4.68)
== END ==
PROVIDERS: PCP Internal Medicine; Visit Provider Nurse Practitioner Gerontology
DX: E78.5 Hyperlipidemia, unspecified (principal); E03.9 Hypothyroidism, unspecified
CPT/HCPCS: 36415; 80061; 84443

== ENCOUNTER 2023-03-08 08:13 | Observation (INO) | payer MEDICARE, OTHER, MEDICAID, SELFPAY ==
[2023-03-08] VITALS (41 sets, daily range): BP systolic 150–229; BP diastolic 53–106; PULSE 46–72; RESP 12–29; TEMP 36.3–36.4; O2SAT 94–99; BMI 18.3
--- NOTE | 2023-03-08 08:20 | DI.RAD.S_ITS ---
PROCEDURE: XR CHEST 1V INDICATIONS: cough TECHNIQUE: One view of the chest was acquired. COMPARISON: None. FINDINGS: Surgical changes and devices: None. Lungs and pleura: Mildly increased pulmonary vascularity suggesting mild pulmonary edema secondary to congestive heart failure. No pleural effusions or pneumothorax. Mediastinum: Mediastinal contours appear normal. Heart size is mildly increased. Bones and chest wall: No suspicious bony lesions. Overlying soft tissues appear unremarkable. IMPRESSION: Mild cardiomegaly and increased pulmonary vascularity suggesting mild CHF. Dictated by: Krystian Rizo M.D. on 03/08/2023 at 8:35 Approved by: Krystian Rizo M.D. on 03/08/2023 at 8:38
--- NOTE | 2023-03-08 08:20 | DI.CT.S_ITS ---
PROCEDURE: CT HEAD/BRAIN WO CON INDICATIONS: confusion/fall TECHNIQUE: Noncontrast 4.5 mm thick angled axial sections acquired from the foramen magnum to the vertex, with coronal and sagittal reformats. For radiation dose reduction, the following was used: automated exposure control, adjustment of mA and/or kV according to patient size. COMPARISON: [facility], CT, CT HEAD/BRAIN WO CON, 08/21/2021, 8:59. FINDINGS: Image quality: Excellent. CSF spaces: Basal cisterns are patent. No extra-axial fluid collections. The ventricles are symmetric in size and shape. Brain: No intracranial bleeds or masses. 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 There is cerebral volume loss for age, with resultant ventricular and sulcal prominence. There are periventricular and deep white matter chronic small vessel ischemic changes. There is intracranial internal carotid artery atherosclerosis. Skull and face: Calvarium and visualized facial bones appear intact, without suspicious lesions. Sinuses: Visualized sinuses and mastoids are clear. IMPRESSION: 1. No acute intracranial abnormalities. 2. Cerebral volume loss and chronic microvascular ischemic changes. Dictated by: Krystian Rizo M.D. on 03/08/2023 at 8:38 Approved by: Krystian Rizo M.D. on 03/08/2023 at 8:40
--- NOTE | 2023-03-08 08:25 | ED.GENADULT ---
HPI - General Adult General Chief complaint: Arrhythmia/Palpitations Stated complaint: alzheimer's found on floor next to bed, & weakness Time Seen by Provider: 03/08/23 08:19 History of Present Illness HPI narrative: Patient brought in by ambulance from [facility] for generalized weakness. Blood sugar 163 by EMS. Blood pressure noted, has not had morning meds. Patient is in no distress but is diaphoretic appearing. Patient answers to questions appropriately. Denies any pain. She states she did not fall. She was asked many times here. When asked, she was trying to go to the bathroom and felt weak and sat on the floor. Denies any head pain neck pain back pain chest pain abdominal pain or limb pain. When asked, she is feeling very weak all over the place. Denies any vomiting or diarrhea. Patient is in no distress at this time. Patient has history of Alzheimer's dementia. Is as history of fractures in the past. Patient is DNR with selective treatments, POLST form and records brought with her. senior care staff reported to EMS she is at baseline behavior and cognition Related Data Home Medications Medication Instructions Recorded Confirmed acetaminophen 325 mg tablet 650 mg PO QID PRN Pain (Scale 03/09/23 03/09/23 Score 1-3) aspirin 81 mg chewable tablet 1 tab PO QAM 03/09/23 03/09/23 atorvastatin 80 mg tablet 80 mg PO BEDTIME 03/09/23 03/09/23 cholecalciferol (vitamin D3) 25 2,000 unit PO QAM 03/09/23 03/09/23 mcg (1,000 unit) tablet citalopram 10 mg tablet 10 mg PO QAM 03/09/23 03/09/23 docusate sodium 250 mg capsule 250 mg PO BID 03/09/23 03/09/23 dorzolamide 22.3 mg-timolol 6.8 1 drp EYE-BOTH BID 03/09/23 03/09/23 mg/mL eye drops fenofibrate micronized 134 mg 134 mg PO QAM 03/09/23 03/09/23 capsule hydrocodone 5 mg-acetaminophen 325 1 tab PO BID PRN Pain (Scale Score 03/09/23 03/09/23 mg tablet 4-6) latanoprost 0.005 % eye drops 1 drp EYE-BOTH QAM 03/09/23 03/09/23 levothyroxine 75 mcg tablet 75 mcg PO QAM 03/09/23 03/09/23 lisinopril 20 mg tablet 20 mg PO BEDTIME 03/09/23 03/09/23 lorazepam 0.5 mg tablet 0.5 mg PO 3XD PRN Anxiety 03/09/23 03/09/23 melatonin 3 mg tablet 3 mg PO BEDTIME PRN Insomnia 03/09/23 03/09/23 sennosides 8.6 mg tablet (senna) 17.2 mg PO BID 03/09/23 03/09/23 Allergies Allergy/AdvReac Type Severity Reaction Status Date / Time No Known Drug Allergies Allergy Verified 07/25/20 19:21 Review of Systems Review of Systems Narrative: GENERAL: negative chills, positive fatigue, malaise, negative fever, sweats. HEENT: negative sinus pain, ear pain, sore throat RESPIRATORY: negative dyspnea, cough CARDIOVASCULAR: negative chest pain, palpitations GASTROINTESTINAL: negative nausea, vomiting, abdominal pain : negative dysuria, frequency, hematuria MUSCULOSKELETAL: negative muscle or bony pain SKIN: negative rash, skin lesions NEUROLOGIC: negative weakness, numbness ROS Unobtainable: All systems reviewed & are unremarkable except as noted in HPI and below Patient History Social History marital status: household members: none Smoking Status: Never smoker alcohol intake: never Smoking Status: Never smoker Substance Use Type: does not use Exam Narrative Exam Narrative: GENERAL: in no distress, not toxic not dyspneic HEAD: Normocephalic. Atraumatic nontender scalp skull and face. EYES: Pupils equal round ENT: Mucous membranes moist. NECK: Trachea midline. No midline tenderness or step-off of the cervicothoracic or lumbar spine. CARDIOVASCULAR: Regular rate and rhythm without murmurs RESPIRATORY: Clear to auscultation. Breath sounds equal bilaterally. No wheezes, rales, or rhonchi. GASTROINTESTINAL: Abdomen soft, non-tender EXTREMITIES: No gross deformities. Nontender bilateral shoulders elbows wrists pelvis hips knees and ankles. BACK: No flank tenderness. NEURO: Patient is awake alert and answers to name, says her name fully, no facial droop able to sprayer automatic spray machine equally bilaterally. Lifts each leg independently and equally. SKIN: Warm and slightly diaphoretic PSYCH: Not anxious, is cooperative Initial Vital Signs Initial Vital Signs: Vital Signs Temperature 97.6 F 03/08/23 08:12 Pulse Rate 48 L 03/08/23 08:12 Respiratory Rate 16 03/08/23 08:12 Blood Pressure 215/84 H 03/08/23 08:12 Pulse Oximetry 97 03/08/23 08:12 Oxygen Delivery Method Room Air 03/08/23 08:12 Course Orders Ordered: Discontinued Medications Acetaminophen (Acetaminophen 325 Mg Tablet) 650 mg PO Q6H PRN PRN Reason: Fever/Mild Pain (1-3) Acetaminophen (Acetaminophen 325 Mg Tablet) 650 mg PO QID PRN PRN Reason: Pain (Scale Score 1-3) Hydrocodone Bitart/Acetaminophen (Hydrocodone/Acet 5/325 Tablet) 1 tab PO BID PRN PRN Reason: Pain (Scale Score 4-6) Aspirin (Aspirin 81 Mg Chew Tab) 81 mg PO DAILY [facility] Last Admin: 03/10/23 09:04 Dose: 81 mg Documented By: Admin: 03/09/23 09:03 Dose: 81 mg Documented By: VIVIENNE Atorvastatin Calcium (Atorvastatin 20 Mg Tablet) 80 mg PO BEDTIME [facility] Last Admin: 03/09/23 21:18 Dose: 80 mg Documented By: LIZZY Atropine Sulfate (Atropine 1 Mg/10 Ml Syringe) 0.5 mg IV PRN PRN PRN Reason: HR <40 with symptoms Citalopram Hydrobromide (Citalopram 10 Mg Tablet) 10 mg PO DAILY [facility] Last Admin: 03/10/23 09:04 Dose: 10 mg Documented By: Admin: 03/09/23 09:03 Dose: 10 mg Documented By: VIVIENNE Docusate Sodium (Docusate 100 Mg Capsule) 200 mg PO BID [facility] Last Admin: 03/10/23 09:04 Dose: 200 mg Documented By: Admin: 03/09/23 21:18 Dose: 200 mg Documented By: Admin: 03/09/23 09:04 Dose: 200 mg Documented By: VIVIENNE Dorzolamide/Timolol (Dorzolamide/Timolol Ophth 10 Ml) 1 drops EYE-BOTH BID [facility] Last Admin: 03/10/23 09:11 Dose: 1 drops Documented By: Admin: 03/09/23 21:19 Dose: 1 drops Documented By: Admin: 03/09/23 09:03 Dose: 1 drops Documented By: VIVIENNE Enoxaparin Sodium (Enoxaparin 40 Mg/0.4 Ml Syringe) 40 mg SUBCUT DAILY [facility] Last Admin: 03/10/23 09:15 Dose: 40 mg Documented By: Admin: 03/09/23 09:04 Dose: 40 mg Documented By: VIVIENNE Fenofibrate (Fenofibrate, Micronized 67 Mg Capsule) 134 mg PO DAILY [facility] Last Admin: 03/10/23 09:04 Dose: 134 mg Documented By: Admin: 03/09/23 09:03 Dose: 134 mg Documented By: VIVIENNE Hydralazine HCl (Hydralazine 20 Mg/Ml Vial) 10 mg IV NOW ONE Stop: 03/08/23 12:38 Last Admin: 03/08/23 12:40 Dose: 10 mg Documented By: SALENA Sodium Chloride (Normal Saline 0.9%) 500 mls @ 1,000 mls/hr IV BOLUS ONE Stop: 03/08/23 09:31 Last Infusion: 03/08/23 09:36 Dose: 0 mls/hr Documented By: Admin: 03/08/23 09:13 Dose: 1,000 mls/hr Documented By: RB Sodium Chloride (Normal Saline 0.9%) 1,000 mls @ 75 mls/hr IV CONT ESAU Stop: 03/09/23 04:44 Last Admin: 03/08/23 17:13 Dose: 75 mls/hr Documented By: NATALIE Magnesium Sulfate (Magnesium Sulfate) 2 gm in 50 mls @ 25 mls/hr IV NOW ONE Stop: 03/08/23 19:10 Last Infusion: 03/08/23 19:25 Dose: 0 mls/hr Documented By: LIZZY Co-signed By: Admin: 03/08/23 17:23 Dose: 25 mls/hr Documented By: NATALIE Co-signed By: VIVIENNE Labetalol HCl (Labetalol 20 Mg/4 Ml Syringe) 10 mg IV Q5MIN PRN PRN Reason: SBP >180 or DBP >110 Latanoprost (Latanoprost 0.005% Ophth 2.5 Ml) 1 drops EYE-BOTH DAILY [facility] Last Admin: 03/10/23 09:11 Dose: 1 drops Documented By: Admin: 03/09/23 09:03 Dose: 1 drops Documented By: VIVIENNE Levothyroxine Sodium (Levothyroxine 75 Mcg Tablet) 75 mcg PO 0600 [facility] Last Admin: 03/10/23 09:05 Dose: 75 mcg Documented By: Admin: 03/09/23 09:05 Dose: 75 mcg Documented By: VIVIENNE Lisinopril (Lisinopril 20 Mg Tablet) 20 mg PO BEDTIME [facility] Last Admin: 03/09/23 21:18 Dose: 20 mg Documented By: LIZZY Lorazepam (Lorazepam 2 Mg/Ml Inj) 0.5 mg IV NOW ONE Stop: 03/08/23 13:36 Last Admin: 03/08/23 13:50 Dose: 0.5 mg Documented By: LEO Lorazepam (Lorazepam 2 Mg/Ml Inj) 0.5 mg IV Q4HR PRN PRN Reason: nausea or vomiting Lorazepam (Lorazepam 0.5 Mg Tablet) 0.5 mg PO TID PRN PRN Reason: Anxiety Metoclopramide HCl (Metoclopramide 10 Mg/2 Ml Inj) 10 mg IV NOW ONE Stop: 03/08/23 09:11 Last Admin: 03/08/23 09:13 Dose: 10 mg Documented By: SALENA Metoclopramide HCl (Metoclopramide 10 Mg/2 Ml Inj) 10 mg IV Q6HR PRN PRN Reason: Nausea And Vomiting Mineral Oil (Mineral Oil 1 Each Enema) 1 each HI NOW ONE Stop: 03/08/23 18:12 Last Admin: 03/08/23 23:54 Dose: 1 each Documented By: LIZZY Naloxone HCl (Naloxone 0.4 Mg/Ml Vial) 0.2 mg IV Q2MIN PRN PRN Reason: Opiate Reversal Ondansetron HCl (Ondansetron 4 Mg/2 Ml Inj) 4 mg IV NOW ONE Stop: 03/08/23 08:41 Last Admin: 03/08/23 08:46 Dose: 4 mg Documented By: RB Ondansetron HCl (Ondansetron 4 Mg/2 Ml Inj) 4 mg IV NOW ONE Stop: 03/08/23 10:22 Last Admin: 03/08/23 10:24 Dose: 4 mg Documented By: SALENA Ondansetron HCl (Ondansetron 4 Mg/2 Ml Inj) 4 mg IV Q6HR PRN PRN Reason: Nausea And Vomiting Polyethylene Glycol (Polyethylene Glycol 3350 17 Gm Powd.Pack) 17 gm PO DAILY PRN PRN Reason: Constipation Prochlorperazine (Prochlorperazine 10 Mg/2 Ml Vial) 10 mg IV Q6HR PRN PRN Reason: Nausea Sennosides (Sennosides 8.6 Mg Tablet) 8.6 mg PO BID PRN PRN Reason: Constipation Vitamin D (Cholecalciferol (Vitamin D3) 1,000 Unit Tablet) 2,000 unit PO DAILY [facility] Last Admin: 03/10/23 09:04 Dose: 2,000 unit Documented By: Admin: 03/09/23 09:03 Dose: 2,000 unit Documented By: VIVIENNE Vital Signs Vital signs: Vital Signs - 8 hr 03/08/23 08:12 03/08/23 08:39 03/08/23 08:40 Temperature 97.6 F Pulse Rate 48 L 52 L Respiratory Rate 16 16 Blood Pressure 215/84 H 181/75 H Pulse Oximetry 97 95 Oxygen Delivery Method Room Air 03/08/23 08:40 03/08/23 09:00 03/08/23 09:01 Temperature Pulse Rate 49 L 51 L 50 L Respiratory Rate 12 12 18 Blood Pressure Pulse Oximetry 96 97 97 Oxygen Delivery Method 03/08/23 09:01 03/08/23 09:30 03/08/23 10:00 Temperature Pulse Rate 48 L 51 L Respiratory Rate 16 17 Blood Pressure 229/90 H Pulse Oximetry 96 94 Oxygen Delivery Method 03/08/23 10:01 03/08/23 10:01 03/08/23 10:07 Temperature Pulse Rate 52 L Respiratory Rate 15 Blood Pressure 217/84 H 197/84 H Pulse Oximetry 95 Oxygen Delivery Method 03/08/23 10:07 03/08/23 10:15 03/08/23 10:15 Temperature Pulse Rate 52 L 47 L Respiratory Rate 29 H 21 Blood Pressure 193/83 H Pulse Oximetry 97 96 Oxygen Delivery Method 03/08/23 10:30 03/08/23 10:30 03/08/23 10:46 Temperature Pulse Rate 47 L Respiratory Rate 14 Blood Pressure 185/77 H 190/106 H Pulse Oximetry 98 Oxygen Delivery Method 03/08/23 10:46 03/08/23 11:00 03/08/23 11:00 Temperature Pulse Rate 48 L 49 L Respiratory Rate 15 18 Blood Pressure 183/78 H Pulse Oximetry 98 99 Oxygen Delivery Method 03/08/23 11:15 03/08/23 11:15 03/08/23 11:30 Temperature Pulse Rate 46 L 48 L Respiratory Rate 19 15 Blood Pressure 182/76 H Pulse Oximetry 97 98 Oxygen Delivery Method 03/08/23 11:31 03/08/23 11:31 03/08/23 11:45 Temperature Pulse Rate 48 L Respiratory Rate 18 Blood Pressure 195/77 H 188/79 H Pulse Oximetry 97 Oxygen Delivery Method 03/08/23 11:45 03/08/23 12:00 03/08/23 12:01 Temperature Pulse Rate 48 L 55 L 54 L Respiratory Rate 15 17 18 Blood Pressure Pulse Oximetry 98 96 98 Oxygen Delivery Method 03/08/23 12:01 03/08/23 12:15 03/08/23 12:15 Temperature Pulse Rate 49 L Respiratory Rate 14 Blood Pressure 209/86 H 192/81 H Pulse Oximetry 98 Oxygen Delivery Method 03/08/23 12:30 03/08/23 12:31 03/08/23 12:31 Temperature Pulse Rate 50 L 51 L Respiratory Rate 18 15 Blood Pressure 199/91 H Pulse Oximetry 95 96 Oxygen Delivery Method 03/08/23 12:40 03/08/23 12:45 03/08/23 12:45 Temperature Pulse Rate 53 L 53 L Respiratory Rate 15 Blood Pressure 199/91 H 198/81 H Pulse Oximetry 96 Oxygen Delivery Method 03/08/23 13:00 03/08/23 13:00 03/08/23 13:29 Temperature Pulse Rate 57 L 66 Respiratory Rate 18 Blood Pressure 196/84 H 199/85 H Pulse Oximetry 98 Oxygen Delivery Method 03/08/23 13:28 03/08/23 13:28 03/08/23 13:30 Temperature Pulse Rate 72 Respiratory Rate 15 Blood Pressure 199/85 H 185/81 H Pulse Oximetry 96 Oxygen Delivery Method 03/08/23 13:30 03/08/23 13:45 03/08/23 13:45 Temperature Pulse Rate 64 62 Respiratory Rate 17 16 Blood Pressure 177/68 H Pulse Oximetry 95 96 Oxygen Delivery Method 03/08/23 14:00 03/08/23 14:00 03/08/23 14:15 Temperature Pulse Rate 69 65 Respiratory Rate 18 19 Blood Pressure 176/75 H Pulse Oximetry 94 96 Oxygen Delivery Method 03/08/23 14:15 03/08/23 14:30 03/08/23 14:30 Temperature Pulse Rate 61 Respiratory Rate 17 Blood Pressure 172/76 H 173/61 H Pulse Oximetry 97 Oxygen Delivery Method 03/08/23 14:45 03/08/23 14:45 03/08/23 15:00 Temperature Pulse Rate 60 Respiratory Rate 18 Blood Pressure 175/79 H 167/72 H Pulse Oximetry 96 Oxygen Delivery Method 03/08/23 15:00 03/08/23 15:15 03/08/23 15:15 Temperature Pulse Rate 60 58 L Respiratory Rate 17 18 Blood Pressure 166/72 H Pulse Oximetry 96 96 Oxygen Delivery Method Medical Decision Making Lab Data 03/10/23 04:39 03/10/23 04:39 Labs: Lab Results 03/08/23 03/08/23 03/08/23 Range/Units 08:20 08:20 08:20 WBC 5.9 (4.5-11.0) X10^3/uL RBC 4.08 (4.0-5.2) X10^6/uL Hgb 13.1 (12.0-16.0) g/dL Hct 39.4 (36-46) % MCV 96.6 (80-100) fL MCH 32.2 (26-34) PG MCHC 33.4 (30-36) % RDW 14.0 (11.6-14.8) % Plt Count 248 (150-400) X10^3/uL Neut % (Auto) 56.3 (50-75) % Lymph % (Auto) 32.6 (25-40) % Stokes % (Auto) 8.2 (3-14) % Eos % (Auto) 2.4 (2-4) % Baso % (Auto) 0.5 (0-2) % Neut # (Auto) 3300 (6979-3046) /uL Lymph # (Auto) 1900 (0006-1533) /uL Stokes # (Auto) 500 (0-900) /uL Eos # (Auto) 100 (0-450) /uL Baso # (Auto) 0 (0-100) /uL Sodium 137 (137-145) mmol/L Potassium 4.0 (3.4-5.1) mmol/L Chloride 104 (98-107) mmol/L Carbon Dioxide 26 (22-32) mmol/L BUN 19 H (7-17) mg/dL Creatinine 0.59 (0.52-1.04) mg/dL Estimated GFR > 60 (>60) mL/min BUN/Creatinine Ratio 32.2 H (6-22) Glucose 157 H (80-110) mg/dL Lactate 1.1 (0.7-2.1) mmol/L Calcium 9.0 (8.4-10.2) mg/dL Magnesium (1.6-2.3) mg/dL Total Bilirubin 0.5 (0.2-1.3) mg/dL AST 30 (14-36) IU/L ALT 19 (<35) IU/L Alkaline Phosphatase 47 (38-126) U/L Total Creatine Kinase 34 (30-135) U/L Troponin I < 0.012 (0.01-0.034) ng/mL Total Protein 7.6 (6.3-8.2) g/dL Albumin 4.2 (3.5-5.0) g/dL Globulin 3.4 (1.7-4.1) g/dL Albumin/Globulin Ratio 1.2 (1.0-2.8) Procalcitonin 0.04 (<0.5) ng/mL TSH (0.47-4.68) uIU/mL Free T4 (0.78-2.19) ng/dL Urine Color Urine Appearance Urine pH (4.5-8.0) Ur Specific [place] (1.000-1.035) Urine Protein (Negative) Urine Glucose (UA) (Negative) g/dL Urine Ketones (NEGATIVE) Urine Occult Blood (Negative) Urine Nitrate (Negative) Urine Bilirubin (NEGATIVE) Urine Urobilinogen (0.2) E.U./dL Ur Leukocyte Esterase (NEGATIVE) Urine RBC (0-5/HPF) Urine WBC (0-5/HPF) Ur Squamous Epith Cells (0-5/HPF) Urine Bacteria (None) Ur Culture Indicated? Chlamy pneumoniae PCR (Not Detect) Adenovirus (PCR) (Not Detect) B. pertussis DNA (PCR) (Not Detecte) B.parapertussis DNA PCR (Not Detecte) Coronavirus OC43 (PCR) (Not Detect) Coronavirus HKU1 (PCR) (Not Detect) Coronavirus 229E (PCR) (Not Detect) SARS-CoV-2 (PCR) (Not Detecte) Coronavirus NL63 (PCR) (Not Detect) Human Metapneumovir PCR (Not Detect) Influenza Type A (PCR) (Not Detect) Influenza Type B (PCR) (Not Detect) M. pneumoniae (PCR) (Not Detect) Parainfluenza 1 (PCR) (Not Detect) Parainfluenza 2 (PCR) (Not Detect) Parainfluenza 3 (PCR) (Not Detect) Parainfluenza 4 (PCR) (Not Detect) RSV (PCR) (Not Detect) Entero/Rhino (PCR) (Not Detect) 03/08/23 03/08/23 03/08/23 Range/Units 08:40 09:35 14:47 WBC (4.5-11.0) X10^3/uL RBC (4.0-5.2) X10^6/uL Hgb (12.0-16.0) g/dL Hct (36-46) % MCV (80-100) fL MCH (26-34) PG MCHC (30-36) % RDW (11.6-14.8) % Plt Count (150-400) X10^3/uL Neut % (Auto) (50-75) % Lymph % (Auto) (25-40) % Stokes % (Auto) (3-14) % Eos % (Auto) (2-4) % Baso % (Auto) (0-2) % Neut # (Auto) (6049-2984) /uL Lymph # (Auto) (1999-6897) /uL Stokes # (Auto) (0-900) /uL Eos # (Auto) (0-450) /uL Baso # (Auto) (0-100) /uL Sodium (137-145) mmol/L Potassium (3.4-5.1) mmol/L Chloride (98-107) mmol/L Carbon Dioxide (22-32) mmol/L BUN (7-17) mg/dL Creatinine (0.52-1.04) mg/dL Estimated GFR (>60) mL/min BUN/Creatinine Ratio (6-22) Glucose (80-110) mg/dL Lactate (0.7-2.1) mmol/L Calcium (8.4-10.2) mg/dL Magnesium (1.6-2.3) mg/dL Total Bilirubin (0.2-1.3) mg/dL AST (14-36) IU/L ALT (<35) IU/L Alkaline Phosphatase (38-126) U/L Total Creatine Kinase 30 (30-135) U/L Troponin I < 0.012 (0.01-0.034) ng/mL Total Protein (6.3-8.2) g/dL Albumin (3.5-5.0) g/dL Globulin (1.7-4.1) g/dL Albumin/Globulin Ratio (1.0-2.8) Procalcitonin (<0.5) ng/mL TSH (0.47-4.68) uIU/mL Free T4 (0.78-2.19) ng/dL Urine Color Yellow Urine Appearance Clear Urine pH 7.5 (4.5-8.0) Ur Specific [place] 1.020 (1.000-1.035) Urine Protein Negative (Negative) Urine Glucose (UA) Negative (Negative) g/dL Urine Ketones Negative (NEGATIVE) Urine Occult Blood Trace-intact (Negative) Urine Nitrate Negative (Negative) Urine Bilirubin Negative (NEGATIVE) Urine Urobilinogen 0.2 (0.2) E.U./dL Ur Leukocyte Esterase Negative (NEGATIVE) Urine RBC 0-1/hpf (0-5/HPF) Urine WBC 0-1/hpf (0-5/HPF) Ur Squamous Epith Cells 0-1 /hpf (0-5/HPF) Urine Bacteria None seen (None) Ur Culture Indicated? Cult not indicated Chlamy pneumoniae PCR Not detected (Not Detect) Adenovirus (PCR) Not detected (Not Detect) B. pertussis DNA (PCR) Not detected (Not Detecte) B.parapertussis DNA PCR Not detected (Not Detecte) Coronavirus OC43 (PCR) Not detected (Not Detect) Coronavirus HKU1 (PCR) Not detected (Not Detect) Coronavirus 229E (PCR) Not detected (Not Detect) SARS-CoV-2 (PCR) Not detected (Not Detecte) Coronavirus NL63 (PCR) Not detected (Not Detect) Human Metapneumovir PCR Not detected (Not Detect) Influenza Type A (PCR) Not detected (Not Detect) Influenza Type B (PCR) Not detected (Not Detect) M. pneumoniae (PCR) Not detected (Not Detect) Parainfluenza 1 (PCR) Not detected (Not Detect) Parainfluenza 2 (PCR) Not detected (Not Detect) Parainfluenza 3 (PCR) Not detected (Not Detect) Parainfluenza 4 (PCR) Not detected (Not Detect) RSV (PCR) Not detected (Not Detect) Entero/Rhino (PCR) Not detected (Not Detect) 03/08/23 03/08/23 Range/Units 14:47 14:47 WBC (4.5-11.0) X10^3/uL RBC (4.0-5.2) X10^6/uL Hgb (12.0-16.0) g/dL Hct (36-46) % MCV (80-100) fL MCH (26-34) PG MCHC (30-36) % RDW (11.6-14.8) % Plt Count (150-400) X10^3/uL Neut % (Auto) (50-75) % Lymph % (Auto) (25-40) % Stokes % (Auto) (3-14) % Eos % (Auto) (2-4) % Baso % (Auto) (0-2) % Neut # (Auto) (8468-8606) /uL Lymph # (Auto) (2035-9919) /uL Stokes # (Auto) (0-900) /uL Eos # (Auto) (0-450) /uL Baso # (Auto) (0-100) /uL Sodium (137-145) mmol/L Potassium (3.4-5.1) mmol/L Chloride (98-107) mmol/L Carbon Dioxide (22-32) mmol/L BUN (7-17) mg/dL Creatinine (0.52-1.04) mg/dL Estimated GFR (>60) mL/min BUN/Creatinine Ratio (6-22) Glucose (80-110) mg/dL Lactate (0.7-2.1) mmol/L Calcium (8.4-10.2) mg/dL Magnesium 1.9 (1.6-2.3) mg/dL Total Bilirubin (0.2-1.3) mg/dL AST (14-36) IU/L ALT (<35) IU/L Alkaline Phosphatase (38-126) U/L Total Creatine Kinase (30-135) U/L Troponin I (0.01-0.034) ng/mL Total Protein (6.3-8.2) g/dL Albumin (3.5-5.0) g/dL Globulin (1.7-4.1) g/dL Albumin/Globulin Ratio (1.0-2.8) Procalcitonin (<0.5) ng/mL TSH 7.94 H (0.47-4.68) uIU/mL Free T4 1.55 (0.78-2.19) ng/dL Urine Color Urine Appearance Urine pH (4.5-8.0) Ur Specific [place] (1.000-1.035) Urine Protein (Negative) Urine Glucose (UA) (Negative) g/dL Urine Ketones (NEGATIVE) Urine Occult Blood (Negative) Urine Nitrate (Negative) Urine Bilirubin (NEGATIVE) Urine Urobilinogen (0.2) E.U./dL Ur Leukocyte Esterase (NEGATIVE) Urine RBC (0-5/HPF) Urine WBC (0-5/HPF) Ur Squamous Epith Cells (0-5/HPF) Urine Bacteria (None) Ur Culture Indicated? Chlamy pneumoniae PCR (Not Detect) Adenovirus (PCR) (Not Detect) B. pertussis DNA (PCR) (Not Detecte) B.parapertussis DNA PCR (Not Detecte) Coronavirus OC43 (PCR) (Not Detect) Coronavirus HKU1 (PCR) (Not Detect) Coronavirus 229E (PCR) (Not Detect) SARS-CoV-2 (PCR) (Not Detecte) Coronavirus NL63 (PCR) (Not Detect) Human Metapneumovir PCR (Not Detect) Influenza Type A (PCR) (Not Detect) Influenza Type B (PCR) (Not Detect) M. pneumoniae (PCR) (Not Detect) Parainfluenza 1 (PCR) (Not Detect) Parainfluenza 2 (PCR) (Not Detect) Parainfluenza 3 (PCR) (Not Detect) Parainfluenza 4 (PCR) (Not Detect) RSV (PCR) (Not Detect) Entero/Rhino (PCR) (Not Detect) Urine Dip Bedside Urine Glucose Negative Bedside Urine Bilirubin - Negative Bedside Urine Ketone - Negative Urine Specific [place] 1.015 Bedside Urine Occult Blood +/- Bedside Urine pH 7.5 Bedside Urine Protein - Negative Bedside Urine Urobilinogen - Negative Bedside Urine Nitrite - Negative Bedside Urine Leukocytes + 70 Esterase Point of care testing: Urine Dip Bedside Urine Glucose Negative Bedside Urine Bilirubin - Negative Bedside Urine Ketone - Negative Urine Specific [place] 1.015 Bedside Urine Occult Blood +/- Bedside Urine pH 7.5 Bedside Urine Protein - Negative Bedside Urine Urobilinogen - Negative Bedside Urine Nitrite - Negative Bedside Urine Leukocytes + 70 Esterase Imaging Data Chest x-ray: Radiologist's Impression: [address] [address] XRay Report Signed Patient: Nadeen Liz MR#: [id number] : 1935 Acct:[id number] Age/Sex: 87 / F Date of Service: 03/08/23 Loc: ED Accession Number: [id number] ?? Procedure: XR chest 1V Ordering Provider: Tim Leahy MD PROCEDURE:? XR CHEST 1V ? INDICATIONS:? cough ? TECHNIQUE:? One view of the chest was acquired.? ? COMPARISON:? None. ? FINDINGS:? ? Surgical changes and devices:? None.? ? Lungs and pleura:? Mildly increased pulmonary vascularity suggesting mild pulmonary edema secondary to congestive heart failure.? No pleural effusions or pneumothorax.? ? Mediastinum:? Mediastinal contours appear normal.? Heart size is mildly increased.? ? Bones and chest wall:? No suspicious bony lesions.? Overlying soft tissues appear unremarkable.? ? IMPRESSION:? Mild cardiomegaly and increased pulmonary vascularity suggesting mild CHF. ? ? Dictated by: Krystian Rizo M.D. on 03/08/2023 at 8:35 ? ? Approved by: Krystian Rizo M.D. on 03/08/2023 at 8:38 ? CT scan - head: Radiologist's Impression: [address] [address] [address] Scan Report Signed Patient: Nadeen Liz MR#: [id number] : 1935 Acct:[id number] Age/Sex: 87 / F Date of Service: 03/08/23 Loc: ED Accession Number: [id number] ?? Procedure: CT head/brain wo con Ordering Provider: Tim Leahy MD PROCEDURE:? CT HEAD/BRAIN WO CON ? INDICATIONS:? confusion/fall ? TECHNIQUE:? Noncontrast 4.5 mm thick angled axial sections acquired from the foramen magnum to the vertex, with coronal and sagittal reformats.? For radiation dose reduction, the following was used:? automated exposure control, adjustment of mA and/or kV according to patient size.? ? COMPARISON:? [facility], CT, CT HEAD/BRAIN WO CON, 08/21/2021, 8:59. ? FINDINGS:? Image quality:? Excellent.? ? CSF spaces:? Basal cisterns are patent.? No extra-axial fluid collections.? The ventricles are symmetric in size and shape.? ? Brain:? No intracranial bleeds or masses.? 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 There is cerebral volume loss for age, with resultant ventricular and sulcal prominence.? There are periventricular and deep white matter chronic small vessel ischemic changes.? There is intracranial internal carotid artery atherosclerosis.? ? Skull and face:? Calvarium and visualized facial bones appear intact, without suspicious lesions.? ? Sinuses:? Visualized sinuses and mastoids are clear.? ? IMPRESSION:? ? 1. No acute intracranial abnormalities. ? 2. Cerebral volume loss and chronic microvascular ischemic changes. ? ? ? Dictated by: Krystian Rizo M.D. on 03/08/2023 at 8:38 ? ? Approved by: Krystian Rizo M.D. on 03/08/2023 at 8:40 ? CT chest abdomen pelvis: Radiologist's Impression: [place] [address] CT Scan Report Signed Patient: Nadeen Liz MR#: [id number] : 1935 Acct:[id number] Age/Sex: 87 / F Date of Service: 03/08/23 Loc: ED Accession Number: [id number] ?? Procedure: CT chest abd pel w con Ordering Provider: Tim Leahy MD PROCEDURE:? CT CHEST ABD PEL W CON ? INDICATIONS:? Sepsis ? TECHNIQUE:? After the administration of oral and intravenous contrast, axial sections acquired from the supraclavicular neck to the pubic symphysis.? Coronal and sagittal reformats were performed.? For radiation dose reduction, the following was used:? automated exposure control, adjustment of mA and/or kV according to patient size.? ? COMPARISON: ? [facility], CR, XR CHEST 1V, 03/08/2023, 8:21. ? FINDINGS:? Image quality:? Excellent.? ? CHEST: Lower Neck: No enlarged lymph nodes.? Thyroid: Within normal limits. Axillae: No enlarged lymph nodes. Chest Wall:? Unremarkable.? ? Lungs and Airways: No consolidation.? Bilateral subpleural septal thickening.? There is a 0.8 cm nodule in the right middle lobe (series 5, image 217), Pleura: No pneumothorax or pleural effusions.? ? Heart: Heart size is mildly increased.? No pericardial effusion.? Moderate to severe coronary artery atherosclerosis. Thoracic Vessels: The aorta and pulmonary arteries demonstrate normal size.? Mediastinum and Giovanna: No enlarged lymph nodes.? Esophagus: No wall thickening.? Small hiatal hernia. ? ? ABDOMEN: Liver:? Unremarkable.? ? Gallbladder:? There is a calcified gallstone.? No gallbladder wall thickening or pericholecystic fluid.? ? Biliary ducts:? Unremarkable.? ? Pancreas:? Unremarkable.? ? Spleen:? Unremarkable.? ? Adrenal Glands:? Mild left adrenal thickening.? ? Kidneys and Ureters:? Unremarkable.? ? ? Stomach and Bowel:? Stomach, small bowel loops, and colon are normal in caliber.? There may be mild colonic wall thickening involving the transverse colon and descending colon.? Diverticulosis.? No acute diverticulitis.? There is a large amount of stool in distal colon and rectum. Peritoneum:? No abnormal intraperitoneal fluid.? No free air.? ? Ventral Wall: ? No hernia.? Abdominal Nodes:? No retroperitoneal or mesenteric adenopathy by size criteria.? Vessels:? Aorta and inferior vena cava are normal in size.? ? PELVIS: Pelvic Organs:? Myomatous uterus with calcified uterine fibroids.? Uterus is prominent for the patient's age.? ? Bladder:? Unremarkable.? ? Pelvic Nodes: No enlarged lymph nodes.? Miscellaneous: No inguinal hernias are seen. ? ? ? Bones:? Unremarkable.? ? ? IMPRESSION:? ? 1.? Bilateral subpleural septal thickening may be secondary to pulmonary edema or interstitial lung disease. ? 2.? A 0.8 cm nodule in the right middle lobe.? Please see enclosed follow-up recommendation. ? 3.? Mild cardiomegaly and moderate to severe coronary artery atherosclerosis. ? 4. Cholelithiasis. ? 5. Question mild colonic wall thickening involving transverse colon and descending colon. ?Differential diagnoses are mild colitis versus artifact from inadequate distention.? ? 6. Diverticulosis without acute diverticulitis. ? 7. A large amount of stool in the distal colon and rectum.? ? 8. Myomatous uterus with a calcified uterine fibroid.? Uterus is prominent for the patient's age.? Consider pelvic ultrasound for follow-up ? Fleischner Society criteria for SOLID lung nodule followup.? Nodule size (mm)Low-risk patientHigh-risk patient?4No follow-up neededFollow-up at 12 mo; if no change, no further follow-up>3-7Pipwpo-ms CT at 12 mo; if no change, no further follow-up needed.Initial follow-up CT at 6-12 mo, then 18-24 mo if no change.? >6-8Initial follow-up CT at 6-12 mo, then 18-24 mo if no change. Initial follow-up CT at 3-6 mo, then 9-12 mo and 24 mo if no change.? >8Follow-up CT at 3, 9, 24 mo.? Or PET and/or biopsy.Same as for low-risk pts.? ? ? Dictated by: Krystian Rizo M.D. on 03/08/2023 at 14:11 ? ? Approved by: Krystian Rizo M.D. on 03/08/2023 at 14:21 ? MDM Narrative Medical decision making narrative: Patient brought in by ambulance from [facility] for generalized weakness. Blood sugar 163 by EMS. Blood pressure noted, has not had morning meds. Patient is in no distress but is diaphoretic appearing. Patient answers to questions appropriately. Denies any pain. She states she did not fall. She was asked many times here. When asked, she was trying to go to the bathroom and felt weak and sat on the floor. Denies any head pain neck pain back pain chest pain abdominal pain or limb pain. When asked, she is feeling very weak all over the place. Denies any vomiting or diarrhea. Patient is in no distress at this time. Patient has history of Alzheimer's dementia. Is as history of fractures in the past. Patient is DNR with selective treatments, POLST form and records brought with her. senior care staff reported to EMS she is at baseline behavior and cognition After history and exam CBC CMP procalcitonin lactic acid urinalysis CT head chest x-ray EKG troponin rectal temperature viral swab MDM CC: Weakness Complicating co-morbidities: Alzheimer Data collected from: EMS Medical records reviewed: senior care records Differential considered: Includes but not limited to symptomatic bradycardia sepsis UTI pneumonia STEMI Exam documented above, pertinent findings include: Patient awake, is responsive to name and following directions Lab Test results independently reviewed as above. Pertinent findings: WBC 5.9 hemoglobin 13.1 Sodium 137 potassium 4.0 BUN 19 creatinine 0.59 GFR greater than 60 AST 30 ALT 19 troponin less than 0.012 Independently reviewed EKG sinus bradycardia rate 43 Imaging studies independently reviewed: CT head no acute finding Chest x-ray cardiomegaly mild CHF CT chest abdomen pelvis no acute finding Consultations: 10:47 a.m.. Sent copy of EKG to Dr. Donnelly, EP Cardiology with [facility]. 10:48 a.m. cardiology has reviewed EKG 12:[address] Donnelly recommends hydralazine for blood pressure management. Recommends patient to be admitted here for blood pressure and heart rate management. Would observe here for 24 hours before transferring recommends getting echocardiogram. 3:[address] Dowling, hospitalist, he will admit patient Treatments: Zofran Reglan normal saline Ativan Re-evaluations: 8:58 a.m.. Daughter at bedside. She states her brother just saw patient yesterday. Patient does talk and interact very well but is forgetful. Reviewed with daughter that source of her altered mental status uncertain at this time. This could be infectious versus cardiac versus stroke. Results are pending. 12:45 p.m.. Patient is interacting better with daughter at bedside. Much more responsive. Discussion: Upright for admission. Patient not at baseline. Not baseline with cognition or with heart rate. Reviewed with patient and family they do agree for admission. Reviewed hospitalist and web applications administrator agree for observation. Diagnosis: Symptomatic bradycardia Discharge Plan Departure Patient Disposition: Admitted as Observation Clinical Impression: Symptomatic bradycardia Admit Date/Time: 03/08/23 15:59 Admit Provider: Barron Dowling
[2023-03-08 08:28] LABS: Add Manual Diff / Slide Review NO; Basophils Absolute Auto 0 /uL (0-100); Basophils Percent Auto 0.5 % (0-2); Eosinophils Absolute Auto 100 /uL (0-450); Eosinophils Percent Auto 2.4 % (2-4); Hematocrit 39.4 % (36-46); Hemoglobin 13.1 g/dL (12.0-16.0); Lymphocytes Absolute Auto 1900 /uL (1100-4500); Lymphocytes Percent Auto 32.6 % (25-40); Mean Corpuscular HGB Conc 33.4 % (30-36); Mean Corpuscular Hemoglobin 32.2 PG (26-34); Mean Corpuscular Volume 96.6 fL (80-100); Monocytes Absolute Auto 500 /uL (0-900); Monocytes Percent Auto 8.2 % (3-14); Neutrophils Absolute Auto 3300 /uL (1500-7000); Neutrophils Percent Auto 56.3 % (50-75); Platelet Count 248 X10^3/uL (150-400); Red Blood Cell Count 4.08 X10^6/uL (4.0-5.2); White Blood Cell Count 5.9 X10^3/uL (4.5-11.0)
[2023-03-08 08:42] LABS: Alanine Aminotransferase 19 IU/L (<35); Albumin 4.2 g/dL (3.5-5.0); Albumin Globulin Ratio 1.2 (1.0-2.8); Alkaline Phosphatase 47 U/L (38-126); Aspartate Aminotransferase 30 IU/L (14-36); BUN Creatinine Ratio 32.2 (6-22); Bilirubin Total 0.5 mg/dL (0.2-1.3); Blood Urea Nitrogen 19 mg/dL (7-17); Carbon Dioxide 26 mmol/L (22-32); Chloride 104 mmol/L (98-107); Creatine Kinase 34 U/L (30-135); Estimated Glomerular Filt Rate > 60 mL/min (>60); Globulin 3.4 g/dL (1.7-4.1); Glucose 157 mg/dL (80-110); Sodium 137 mmol/L (137-145); Total Protein 7.6 g/dL (6.3-8.2)
[2023-03-08 08:43] LABS: Lactate (Lactic Acid) 1.1 mmol/L (0.7-2.1)
[2023-03-08] MEDS: ONDANSETRON 4 MG/2 ML INJ IV ×2 (08:46→10:24)
[2023-03-08 08:55] LABS: HEMOLYSIS < 15 (0-50); Troponin I < 0.012 ng/mL (0.01-0.034)
[2023-03-08 08:58] LABS: Procalcitonin 0.04 ng/mL (<0.5)
[2023-03-08] MEDS: METOCLOPRAMIDE 10 MG/2 ML INJ IV (09:13)
[2023-03-08] MEDS: SODIUM CHLORIDE 0.9% 500 ML 1000 ML IV (09:13)
--- NOTE | 2023-03-08 09:37 | PC.NURSE ---
Provider notified of high blood pressure and that the patient takes 20mg of lisinopril every morning and patient had not taken yet. No new orders at this time.
[2023-03-08 09:45] LABS: Appearance Urine UA CLEAR; Bilirubin Urine UA NEGATIVE (NEGATIVE); Color Urine UA YELLOW; Glucose Urine UA NEGATIVE (Negative); Ketones Urine UA NEGATIVE (NEGATIVE); Leukocyte Esterase Urine UA NEGATIVE (NEGATIVE); Nitrite Urine UA NEGATIVE (Negative); Occult Blood Urine UA TRACE-INTACT (Negative); Protein Urine UA NEGATIVE (Negative); Urobilinogen Urine UA 0.2 E.U./dL (0.2)
[2023-03-08 10:01] LABS: Adenovirus Not Detected (Not Detect); B. parapertussis Not Detected (Not Detecte); Bordetella pertussis Not Detected (Not Detecte); Chlamydophila pneumoniae Not Detected (Not Detect); Coronavirus 229E Not Detected (Not Detect); Coronavirus HKU1 Not Detected (Not Detect); Coronavirus NL 63 Not Detected (Not Detect); Coronavirus OC43 Not Detected (Not Detect); Human Metapneumovirus Not Detected (Not Detect); Human Rhinovirus/Enterovirus Not Detected (Not Detect); Influenza A Not Detected (Not Detect); Influenza B Not Detected (Not Detect); Mycoplasma pneumoniae Not Detected (Not Detect); Parainfluenza Virus 1 Not Detected (Not Detect); Parainfluenza Virus 2 Not Detected (Not Detect); Parainfluenza Virus 3 Not Detected (Not Detect); Parainfluenza Virus 4 Not Detected (Not Detect); Respiratory Syncytial Virus Not Detected (Not Detect); SARS- CoV-2 Not Detected (Not Detecte)
[2023-03-08 10:13] LABS: pH Urine UA 7.5 (4.5-8.0)
[2023-03-08 10:14] LABS: Bacteria Urine None Seen; Culture Indicated Urine Cult Not Indicated; RBC Urine 0-1/HPF (0-5/HPF); Squamous Epithelial Cell Urine 0-1 /HPF (0-5/HPF); WBC Urine 0-1/HPF (0-5/HPF)
[2023-03-08] MEDS: HYDRALAZINE 20 MG/ML VIAL 10 MG IV (12:40)
--- NOTE | 2023-03-08 12:47 | DI.CT.S_ITS ---
PROCEDURE: CT CHEST ABD PEL W CON INDICATIONS: Sepsis TECHNIQUE: After the administration of oral and intravenous contrast, axial sections acquired from the supraclavicular neck to the pubic symphysis. Coronal and sagittal reformats were performed. For radiation dose reduction, the following was used: automated exposure control, adjustment of mA and/or kV according to patient size. COMPARISON: [facility], CR, XR CHEST 1V, 03/08/2023, 8:21. FINDINGS: Image quality: Excellent. CHEST: Lower Neck: No enlarged lymph nodes. Thyroid: Within normal limits. Axillae: No enlarged lymph nodes. Chest Wall: Unremarkable. Lungs and Airways: No consolidation. Bilateral subpleural septal thickening. There is a 0.8 cm nodule in the right middle lobe (series 5, image 217), Pleura: No pneumothorax or pleural effusions. Heart: Heart size is mildly increased. No pericardial effusion. Moderate to severe coronary artery atherosclerosis. Thoracic Vessels: The aorta and pulmonary arteries demonstrate normal size. Mediastinum and Giovanna: No enlarged lymph nodes. Esophagus: No wall thickening. Small hiatal hernia. ABDOMEN: Liver: Unremarkable. Gallbladder: There is a calcified gallstone. No gallbladder wall thickening or pericholecystic fluid. Biliary ducts: Unremarkable. Pancreas: Unremarkable. Spleen: Unremarkable. Adrenal Glands: Mild left adrenal thickening. Kidneys and Ureters: Unremarkable. Stomach and Bowel: Stomach, small bowel loops, and colon are normal in caliber. There may be mild colonic wall thickening involving the transverse colon and descending colon. Diverticulosis. No acute diverticulitis. There is a large amount of stool in distal colon and rectum. Peritoneum: No abnormal intraperitoneal fluid. No free air. Ventral Wall: No hernia. Abdominal Nodes: No retroperitoneal or mesenteric adenopathy by size criteria. Vessels: Aorta and inferior vena cava are normal in size. PELVIS: Pelvic Organs: Myomatous uterus with calcified uterine fibroids. Uterus is prominent for the patient's age. Bladder: Unremarkable. Pelvic Nodes: No enlarged lymph nodes. Miscellaneous: No inguinal hernias are seen. Bones: Unremarkable. IMPRESSION: 1. Bilateral subpleural septal thickening may be secondary to pulmonary edema or interstitial lung disease. 2. A 0.8 cm nodule in the right middle lobe. Please see enclosed follow-up recommendation. 3. Mild cardiomegaly and moderate to severe coronary artery atherosclerosis. 4. Cholelithiasis. 5. Question mild colonic wall thickening involving transverse colon and descending colon. Differential diagnoses are mild colitis versus artifact from inadequate distention. 6. Diverticulosis without acute diverticulitis. 7. A large amount of stool in the distal colon and rectum. 8. Myomatous uterus with a calcified uterine fibroid. Uterus is prominent for the patient's age. Consider pelvic ultrasound for follow-up Fleischner Society criteria for SOLID lung nodule followup. Nodule size (mm)Low-risk patientHigh-risk patient?4No follow-up neededFollow-up at 12 mo; if no change, no further follow-up>[id number] CT at 12 mo; if no change, no further follow-up needed.Initial follow-up CT at 6-12 mo, then 18-24 mo if no change. >6-8Initial follow-up CT at 6-12 mo, then 18-24 mo if no change. Initial follow-up CT at 3-6 mo, then 9-12 mo and 24 mo if no change. >8Follow-up CT at 3, 9, 24 mo. Or PET and/or biopsy.Same as for low-risk pts. Dictated by: Krystian Rizo M.D. on 03/08/2023 at 14:11 Approved by: Krystian Rizo M.D. on 03/08/2023 at 14:21
--- NOTE | 2023-03-08 12:47 | DI.ECHO.S_ITS ---
[facility]---------[facility] +---------+ : : [address] : : : : [id number] : : : : Phone: [phone]+ Echocardiogram Report + + :Name: INGRIS NAYLOR Study Date: 03/09/2023 Height: 64 in : :[facility] ReadingLocation: Weight: 106 lb : : Gender: Female BSA: 1.5 m2 : :: 1935 Age: 87 yrs BP: 139/52 mmHg: :Reason For Study: PALPITATIONS, BRADYCARDIA : :Ordering Physician: CARRIE, : :CARLEE Performed By: Dia Fontanez : :Referring: CARLEE BUTLER : + + Interpretation Summary The ejection fraction is estimated to be 60-65%. Grade II diastolic dysfunction. The left atrium is moderately dilated. The right ventricle is normal in size and function. The right atrium is mildly dilated. There is mild mitral regurgitation. There is mild aortic regurgitation. There is mild to moderate tricuspid regurgitation. Right ventricular systolic pressure is estimated to be 31 mmHg plus the clinically estimated CVP which cannot be estimated on this exam. Procedure: A two-dimensional transthoracic echocardiogram with color flow and Doppler was performed. The study quality was technically adequate. There is no prior echocardiogram noted for this patient. The patient was in sinus rhythm with heart rates between 66-77 bpm during the exam. Left Ventricle: The left ventricle is normal in size and wall thickness. The ejection fraction is estimated to be 60-65%. Diastolic parameters suggest a pseudonormalization pattern, consistent with probable elevated filling pressures. Right Ventricle: The right ventricle is normal in size and function. Atria: The left atrium is moderately dilated. The right atrium is mildly dilated. There is no Doppler evidence for an interatrial shunt. Mitral Valve: The mitral valve leaflets are mildly calcified. The mitral valve leaflets appear mildly thickened, but open well. There is mild mitral annular calcification. There is mild mitral regurgitation. Aortic Valve: The aortic valve is moderately calcified. The aortic valve is trileaflet. The peak aortic velocity is 2.6 m/sec. The aortic valve mean gradient is 18 mmHg. There is mild aortic stenosis. There is mild aortic regurgitation. Tricuspid Valve: The tricuspid valve is normal in structure and function. There is mild to moderate tricuspid regurgitation. Right ventricular systolic pressure is estimated to be 31 mmHg plus the clinically estimated CVP which cannot be estimated on this exam. Pulmonic Valve: The pulmonic valve leaflets are thin and pliable; valve motion is normal. There is mild pulmonic regurgitation. Great Vessels: The aortic root is normal size. The dimensions of the ascending aorta are normal. The inferior vena cava was not well visualized. Pericardium/ Pleura There is no pericardial effusion. There is no pleural effusion. MMode/2D Measurements & Calculations LVIDd: 3.6 cm LVOT diam: 2.0 cm LVIDs: 2.4 cm Ao root diam: 2.5 cm FS: 35.2 % asc Aorta Diam: 2.9 cm IVSd: 0.78 cm Ao Arch Diam (Prox Trans): 2.1 cm LVPWd: 0.71 cm LV fam. diameter/BSA (cm/m^2): 2.4 LV sys. diameter/BSA (cm/m^2): 1.6 LA A2 area: 21.1 cm2 RA long axis: 4.3 cm LA A4 area: 14.5 cm2 RA area: 11.8 cm2 LA length (vol): 4.4 cm RA vol: 27.9 ml LA vol: 59.6 ml RA : 18.7 ml/m2 LA vol index: 39.9 ml/m2 RVD1 (basal): 3.0 cm RVD2 (mid): 2.5 cm TAPSE: 2.9 cm Doppler Measurements & Calculations Ao V2 max: 260.3 cm/sec LVOT Max Rock: 91.2 cm/sec Ao V2 mean: 200.5 cm/sec LV V1 max P.3 mmHg Ao max P.1 mmHg LV V1 VTI: 21.7 cm Ao mean P.9 mmHg ZOIE(I,D): 1.1 cm2 Ao V2 VTI: 63.1 cm ZOIE(V,D): 1.1 cm2 sev ratio: 0.34 ZOIE indexed to BSA (cm^2/m^2): 0.71 MV E max rock: 118.2 cm/sec TR max rock: 277.1 cm/sec MV A max rock: 112.9 cm/sec TR max P.7 mmHg MV E/A: 1.0 PA V2 max: 102.7 cm/sec Med Peak E' Rock: 5.0 cm/sec PA V2 mean: 80.8 cm/sec E/E' med: 23.9 PA mean P.7 mmHg Lat Peak E' Rock: 5.6 cm/sec PA pr(Accel): 49.9 mmHg E/E' lat: 21.2 E/e' average: 22.5 MV dec time: 0.25 sec MVA(VTI): 1.7 cm2 MV V2 mean: 82.1 cm/sec SV(LVOT): 66.5 ml MV mean P.3 mmHg MV V2 VTI: 40.0 cm Reading Physician:09:02 AM
[2023-03-08] MEDS: LORazepam 2 MG/ML INJ 0.5 MG IV (13:50)
[2023-03-08 15:10] LABS: Creatine Kinase 30 U/L (30-135)
[2023-03-08 15:22] LABS: Troponin I < 0.012 ng/mL (0.01-0.034)
[2023-03-08 17:08] LABS: Magnesium 1.9 mg/dL (1.6-2.3)
[2023-03-08] MEDS: SODIUM CHLORIDE 0.9% 1,000 ML 75 ML IV (17:13)
[2023-03-08] MEDS: MAGNESIUM SULFATE 2 GM/50 ML PIGGYBACK IV (17:23)
[2023-03-08 17:39] LABS: TSH w/ Reflex to FT4 7.94 uIU/mL (0.47-4.68)
--- NOTE | 2023-03-08 17:48 | PC.NURSE ---
Pt arrived on stretcher from ED at 1630. Hypertensive and slightly bradycardic but otherwise VSS on RA. Pt very lethargic, not opening eyes but able to say her birthdate, that she is in the hospital, and intermittently follow commands. Lungs sounds dim, bowel sounds present. Pt able to squeeze with hands but otherwise bilat UE weak. Unable to wiggle toes on command but does move legs in bed for comfort. Purewick in place, suction set up at bedside for nausea/secretions. Family at bedside oriented to room and call light. Bed in low position, SCDs on, call light within reach.
[2023-03-08 18:26] LABS: Free T4, Direct Thyroxine 1.55 ng/dL (0.78-2.19)
--- NOTE | 2023-03-08 18:34 | PM.HP.1 ---
History of Present Illness History of Present Illness Date Patient Seen: 03/08/23 Time Patient Seen: 18:34 Chief complaint: alzheimer's found on floor next to bed, & weakness Narrative: Nadeen Liz is an 87-year-old female with past medical history of dementia, hypertension, hyperlipidemia, hypothyroidism, and glaucoma who presents with NV, weakness and bradycardia. Patient reportedly had a heart rate down to 37. Kendra, Cardiology called who recommended admission for echo and telemetry. Patient's family at the bedside providing history as patient is sleeping and has dementia. They say she has been feeling more weak and this is unlike her. They said in the ED she was having a coughing of foamy sputum and would choke on it. CT chest abdomen pelvis in the ED showed cholelithiasis without gallbladder wall thickening, septal thickening consistent with pulmonary edema or ILD, diverticulosis and a large amount of stool in the rectum. HR has been high 40's. BP elevated to 200's and patient asymptomatic. REPLACED BY [facility] Social History marital status: household members: caregiver Smoking Status: Never smoker alcohol intake: never Meds Home Medications and Allergies Allergies Allergy/AdvReac Type Severity Reaction Status Date / Time No Known Drug Allergies Allergy Verified 07/25/20 19:21 Review of Systems Review of Systems Narrative: All other systems reviewed with the patient and are negative unless otherwise stated. Exam Vital Signs (past 8 hours): - 03/08/23 10:46 03/08/23 10:46 03/08/23 11:00 Temperature Pulse Rate 48 L Respiratory Rate 15 Blood Pressure 190/106 H 183/78 H Pulse Oximetry 98 Oxygen Delivery Method Oxygen Flow Rate 03/08/23 11:00 03/08/23 11:15 03/08/23 11:15 Temperature Pulse Rate 49 L 46 L Respiratory Rate 18 19 Blood Pressure 182/76 H Pulse Oximetry 99 97 Oxygen Delivery Method Oxygen Flow Rate 03/08/23 11:30 03/08/23 11:31 03/08/23 11:31 Temperature Pulse Rate 48 L 48 L Respiratory Rate 15 18 Blood Pressure 195/77 H Pulse Oximetry 98 97 Oxygen Delivery Method Oxygen Flow Rate 03/08/23 11:45 03/08/23 11:45 03/08/23 12:00 Temperature Pulse Rate 48 L 55 L Respiratory Rate 15 17 Blood Pressure 188/79 H Pulse Oximetry 98 96 Oxygen Delivery Method Oxygen Flow Rate 03/08/23 12:01 03/08/23 12:01 03/08/23 12:15 Temperature Pulse Rate 54 L Respiratory Rate 18 Blood Pressure 209/86 H 192/81 H Pulse Oximetry 98 Oxygen Delivery Method Oxygen Flow Rate 03/08/23 12:15 03/08/23 12:30 03/08/23 12:31 Temperature Pulse Rate 49 L 50 L Respiratory Rate 14 18 Blood Pressure 199/91 H Pulse Oximetry 98 95 Oxygen Delivery Method Oxygen Flow Rate 03/08/23 12:31 03/08/23 12:40 03/08/23 12:45 Temperature Pulse Rate 51 L 53 L Respiratory Rate 15 Blood Pressure 199/91 H 198/81 H Pulse Oximetry 96 Oxygen Delivery Method Oxygen Flow Rate 03/08/23 12:45 03/08/23 13:00 03/08/23 13:00 Temperature Pulse Rate 53 L 57 L Respiratory Rate 15 18 Blood Pressure 196/84 H Pulse Oximetry 96 98 Oxygen Delivery Method Oxygen Flow Rate 03/08/23 13:29 03/08/23 13:28 03/08/23 13:28 Temperature Pulse Rate 66 72 Respiratory Rate 15 Blood Pressure 199/85 H 199/85 H Pulse Oximetry 96 Oxygen Delivery Method Oxygen Flow Rate 03/08/23 13:30 03/08/23 13:30 03/08/23 13:45 Temperature Pulse Rate 64 Respiratory Rate 17 Blood Pressure 185/81 H 177/68 H Pulse Oximetry 95 Oxygen Delivery Method Oxygen Flow Rate 03/08/23 13:45 03/08/23 14:00 03/08/23 14:00 Temperature Pulse Rate 62 69 Respiratory Rate 16 18 Blood Pressure 176/75 H Pulse Oximetry 96 94 Oxygen Delivery Method Oxygen Flow Rate 03/08/23 14:15 03/08/23 14:15 03/08/23 14:30 Temperature Pulse Rate 65 Respiratory Rate 19 Blood Pressure 172/76 H 173/61 H Pulse Oximetry 96 Oxygen Delivery Method Oxygen Flow Rate 03/08/23 14:30 03/08/23 14:45 03/08/23 14:45 Temperature Pulse Rate 61 60 Respiratory Rate 17 18 Blood Pressure 175/79 H Pulse Oximetry 97 96 Oxygen Delivery Method Oxygen Flow Rate 03/08/23 15:00 03/08/23 15:00 03/08/23 15:15 Temperature Pulse Rate 60 58 L Respiratory Rate 17 18 Blood Pressure 167/72 H Pulse Oximetry 96 96 Oxygen Delivery Method Oxygen Flow Rate 03/08/23 15:15 03/08/23 15:30 03/08/23 15:30 Temperature Pulse Rate 58 L Respiratory Rate 18 Blood Pressure 166/72 H 181/77 H Pulse Oximetry 97 Oxygen Delivery Method Oxygen Flow Rate 03/08/23 15:45 03/08/23 15:45 03/08/23 16:00 Temperature Pulse Rate 60 Respiratory Rate 18 Blood Pressure 174/77 H 178/73 H Pulse Oximetry 96 Oxygen Delivery Method Oxygen Flow Rate 03/08/23 16:00 03/08/23 16:16 03/08/23 16:16 Temperature Pulse Rate 58 L 65 Respiratory Rate 18 23 Blood Pressure 192/79 H Pulse Oximetry 97 98 Oxygen Delivery Method Oxygen Flow Rate 03/08/23 16:30 03/08/23 17:02 03/08/23 16:30 Temperature 97.3 F L 97.3 F L Pulse Rate 60 60 Respiratory Rate 22 22 Blood Pressure 150/53 H 150/53 H Pulse Oximetry 96 96 Oxygen Delivery Method Room Air Oxygen Flow Rate 0 0 Oxygen Delivery Method Room Air Oxygen Flow Rate 0 Narrative Exam Narrative: GEN: no acute distress, demented female calmly sleeping HEENT: moist mucous membranes, PERRL NECK: trachea midline, no JVD CV: regular rate and rhythm, no murmurs PULM: clear bilaterally ABD: soft, nontender, nondistended, no organomegaly EXT: warm and well perfused with no edema NEURO: awake, alert, oriented, no focal deficits Objective Labs 03/08/23 08:20 03/08/23 08:20 Labs: Laboratory Results - last 24 hr 03/08/23 03/08/23 03/08/23 08:20 08:20 08:20 WBC 5.9 RBC 4.08 Hgb 13.1 Hct 39.4 MCV 96.6 MCH 32.2 MCHC 33.4 RDW 14.0 Plt Count 248 Neut % (Auto) 56.3 Lymph % (Auto) 32.6 [place] % (Auto) 8.2 Eos % (Auto) 2.4 Baso % (Auto) 0.5 Neut # (Auto) 3300 Lymph # (Auto) 1900 [place] # (Auto) 500 Eos # (Auto) 100 Baso # (Auto) 0 Sodium 137 Potassium 4.0 Chloride 104 Carbon Dioxide 26 BUN 19 H Creatinine 0.59 Estimated GFR > 60 BUN/Creatinine Ratio 32.2 H Glucose 157 H Lactate 1.1 Calcium 9.0 Magnesium Total Bilirubin 0.5 AST 30 ALT 19 Alkaline Phosphatase 47 Total Creatine Kinase 34 Troponin I < 0.012 Total Protein 7.6 Albumin 4.2 Globulin 3.4 Albumin/Globulin Ratio 1.2 Procalcitonin 0.04 TSH Free T4 Urine Color Urine Appearance Urine pH Ur Specific [place] Urine Protein Urine Glucose (UA) Urine Ketones Urine Occult Blood Urine Nitrate Urine Bilirubin Urine Urobilinogen Ur Leukocyte Esterase Urine RBC Urine WBC Ur Squamous Epith Cells Urine Bacteria Ur Culture Indicated? Chlamy pneumoniae PCR Adenovirus (PCR) B. pertussis DNA (PCR) B.parapertussis DNA PCR Coronavirus OC43 (PCR) Coronavirus HKU1 (PCR) Coronavirus 229E (PCR) SARS-CoV-2 (PCR) Coronavirus NL63 (PCR) Human Metapneumovir PCR Influenza Type A (PCR) Influenza Type B (PCR) M. pneumoniae (PCR) Parainfluenza 1 (PCR) Parainfluenza 2 (PCR) Parainfluenza 3 (PCR) Parainfluenza 4 (PCR) RSV (PCR) Entero/Rhino (PCR) 03/08/23 03/08/23 03/08/23 08:40 09:35 14:47 WBC RBC Hgb Hct MCV MCH MCHC RDW Plt Count Neut % (Auto) Lymph % (Auto) [place] % (Auto) Eos % (Auto) Baso % (Auto) Neut # (Auto) Lymph # (Auto) [place] # (Auto) Eos # (Auto) Baso # (Auto) Sodium Potassium Chloride Carbon Dioxide BUN Creatinine Estimated GFR BUN/Creatinine Ratio Glucose Lactate Calcium Magnesium Total Bilirubin AST ALT Alkaline Phosphatase Total Creatine Kinase 30 Troponin I < 0.012 Total Protein Albumin Globulin Albumin/Globulin Ratio Procalcitonin TSH Free T4 Urine Color Yellow Urine Appearance Clear Urine pH 7.5 Ur Specific [place] 1.020 Urine Protein Negative Urine Glucose (UA) Negative Urine Ketones Negative Urine Occult Blood Trace-intact Urine Nitrate Negative Urine Bilirubin Negative Urine Urobilinogen 0.2 Ur Leukocyte Esterase Negative Urine RBC 0-1/hpf Urine WBC 0-1/hpf Ur Squamous Epith Cells 0-1 /hpf Urine Bacteria None seen Ur Culture Indicated? Cult not indicated Chlamy pneumoniae PCR Not detected Adenovirus (PCR) Not detected B. pertussis DNA (PCR) Not detected B.parapertussis DNA PCR Not detected Coronavirus OC43 (PCR) Not detected Coronavirus HKU1 (PCR) Not detected Coronavirus 229E (PCR) Not detected SARS-CoV-2 (PCR) Not detected Coronavirus NL63 (PCR) Not detected Human Metapneumovir PCR Not detected Influenza Type A (PCR) Not detected Influenza Type B (PCR) Not detected M. pneumoniae (PCR) Not detected Parainfluenza 1 (PCR) Not detected Parainfluenza 2 (PCR) Not detected Parainfluenza 3 (PCR) Not detected Parainfluenza 4 (PCR) Not detected RSV (PCR) Not detected Entero/Rhino (PCR) Not detected 03/08/23 03/08/23 14:47 14:47 WBC RBC Hgb Hct MCV MCH MCHC RDW Plt Count Neut % (Auto) Lymph % (Auto) [place] % (Auto) Eos % (Auto) Baso % (Auto) Neut # (Auto) Lymph # (Auto) [place] # (Auto) Eos # (Auto) Baso # (Auto) Sodium Potassium Chloride Carbon Dioxide BUN Creatinine Estimated GFR BUN/Creatinine Ratio Glucose Lactate Calcium Magnesium 1.9 Total Bilirubin AST ALT Alkaline Phosphatase Total Creatine Kinase Troponin I Total Protein Albumin Globulin Albumin/Globulin Ratio Procalcitonin TSH 7.94 H Free T4 1.55 Urine Color Urine Appearance Urine pH Ur Specific [place] Urine Protein Urine Glucose (UA) Urine Ketones Urine Occult Blood Urine Nitrate Urine Bilirubin Urine Urobilinogen Ur Leukocyte Esterase Urine RBC Urine WBC Ur Squamous Epith Cells Urine Bacteria Ur Culture Indicated? Chlamy pneumoniae PCR Adenovirus (PCR) B. pertussis DNA (PCR) B.parapertussis DNA PCR Coronavirus OC43 (PCR) Coronavirus HKU1 (PCR) Coronavirus 229E (PCR) SARS-CoV-2 (PCR) Coronavirus NL63 (PCR) Human Metapneumovir PCR Influenza Type A (PCR) Influenza Type B (PCR) M. pneumoniae (PCR) Parainfluenza 1 (PCR) Parainfluenza 2 (PCR) Parainfluenza 3 (PCR) Parainfluenza 4 (PCR) RSV (PCR) Entero/Rhino (PCR) Assessment & Plan Assessment & Plan narrative: # generalized weakness -etiology unclear, labs are reassuring, possibly secondary to bradycardia -PT/OT eval # questionable symptomatic bradycardia -per family heart rate dipped to 37 at one point, consistently now in the high 40s -not on beta-blockers, check TSH -Dr. Gardner cardiology recommended echo and telemetry -atropine as needed for HR <40 with symptoms # septal thickening due to possible pulmonary edema -seen on CT chest -got 1L NS bolus in the ED, not requiring supplemental oxygen -consider IV Lasix if needed # constipation -CT with large stool load in rectum -mineral oil enema ordered # hypertensive urgency -continue home BP meds -labetalol IV as needed # hyperlipidemia -continue home statin # hypothyroidism -continue home Synthroid -TSH as above Code status is DNR/DNI. DVT prophylaxis with Lovenox. Proxy is daughter Hillary. I have reviewed home meds and used all available resources to reconcile the home meds. This patient will be admitted as observation and will require less than 2 midnights of hospital time to treat weakness and bradycardia.
[2023-03-08] MEDS: MINERAL OIL 1 EACH ENEMA PR (23:54)
[2023-03-09] VITALS (7 sets, daily range): BP systolic 130–177; BP diastolic 46–59; PULSE 54–71; RESP 16–17; TEMP 36.4–36.7; O2SAT 94–99
[2023-03-09 05:12] LABS: Add Manual Diff / Slide Review NO; Basophils Absolute Auto 0 /uL (0-100); Basophils Percent Auto 0.2 % (0-2); Eosinophils Absolute Auto 0 /uL (0-450); Hematocrit 36.6 % (36-46); Hemoglobin 12.2 g/dL (12.0-16.0); Lymphocytes Absolute Auto 1300 /uL (1100-4500); Lymphocytes Percent Auto 13.4 % (25-40); Mean Corpuscular HGB Conc 33.3 % (30-36); Mean Corpuscular Hemoglobin 32.3 PG (26-34); Mean Corpuscular Volume 97.2 fL (80-100); Monocytes Absolute Auto 700 /uL (0-900); Monocytes Percent Auto 6.7 % (3-14); Neutrophils Absolute Auto 8000 /uL (1500-7000); Neutrophils Percent Auto 79.7 % (50-75); Platelet Count 233 X10^3/uL (150-400); Red Blood Cell Count 3.76 X10^6/uL (4.0-5.2); Red Cell Distribution Width 13.7 % (11.6-14.8); White Blood Cell Count 10.1 X10^3/uL (4.5-11.0)
[2023-03-09 05:24] LABS: BUN Creatinine Ratio 31.6 (6-22); Blood Urea Nitrogen 18 mg/dL (7-17); Calcium 8.6 mg/dL (8.4-10.2); Carbon Dioxide 22 mmol/L (22-32); Chloride 106 mmol/L (98-107); Estimated Glomerular Filt Rate > 60 mL/min (>60); Glucose 112 mg/dL (80-110); HEMOLYSIS < 15 (0-50); Potassium 3.9 mmol/L (3.4-5.1); Sodium 138 mmol/L (137-145)
[2023-03-09 05:26] LABS: Magnesium 2.4 mg/dL (1.6-2.3)
[2023-03-09] MEDS: FENOFIBRATE, MICRONIZED 67 MG CAPSULE 134 MG PO (09:03)
[2023-03-09] MEDS: LATANOPROST 0.005% OPHTH 2.5 ML 1 DROPS EYE-BOTH (09:03)
[2023-03-09] MEDS: CITALOPRAM 10 MG TABLET PO (09:03)
[2023-03-09] MEDS: DORZOLAMIDE/TIMOLOL OPHTH 10 ML 1 DROPS EYE-BOTH ×2 (09:03→21:19)
[2023-03-09] MEDS: ASPIRIN 81 MG CHEW TAB PO (09:03)
[2023-03-09] MEDS: CHOLECALCIFEROL (VITAMIN D3) 1,000 UNIT TABLET 2000 UNIT PO (09:03)
[2023-03-09] MEDS: DOCUSATE 100 MG CAPSULE 200 MG PO ×2 (09:04→21:18)
[2023-03-09] MEDS: ENOXAPARIN 40 MG/0.4 ML SYRINGE SUBCUT (09:04)
[2023-03-09] MEDS: LEVOTHYROXINE 75 MCG TABLET PO (09:05)
--- NOTE | 2023-03-09 11:34 | PM.PN.1 ---
Subjective Subjective Interval history: Feels better, still somewhat weak. No pain or confusion. Exam Vital Signs (past 8 hours): - 03/09/23 05:18 03/09/23 08:39 03/09/23 08:30 Temperature 98.1 F 98.0 F Pulse Rate 71 67 Respiratory Rate 16 16 Blood Pressure 139/52 L 154/52 H Pulse Oximetry 97 95 Oxygen Delivery Method Room Air Oxygen Flow Rate 0 Oxygen Delivery Method Room Air Oxygen Flow Rate 0 Narrative Exam Narrative: NAD Normal speech Lungs clear Heart regular Abdomen soft, NT Legs without edema. Objective Imaging Echo: Radiologist's impression: The ejection fraction is estimated to be 60-65%. Grade II diastolic dysfunction. The left atrium is moderately dilated. The right ventricle is normal in size and function. The right atrium is mildly dilated. There is mild mitral regurgitation. There is mild aortic regurgitation. There is mild to moderate tricuspid regurgitation. Right ventricular systolic pressure is estimated to be 31 mmHg plus the clinically estimated CVP which cannot be estimated on this exam. Labs 03/09/23 04:55 03/09/23 04:55 Labs: Laboratory Results - last 24 hr 03/08/23 03/08/23 03/08/23 14:47 14:47 14:47 WBC RBC Hgb Hct MCV MCH MCHC RDW Plt Count Neut % (Auto) Lymph % (Auto) [place] % (Auto) Eos % (Auto) Baso % (Auto) Neut # (Auto) Lymph # (Auto) [place] # (Auto) Eos # (Auto) Baso # (Auto) Sodium Potassium Chloride Carbon Dioxide BUN Creatinine Estimated GFR BUN/Creatinine Ratio Glucose Calcium Magnesium 1.9 Total Creatine Kinase 30 Troponin I < 0.012 TSH 7.94 H Free T4 1.55 03/09/23 03/09/23 03/09/23 04:55 04:55 04:55 WBC 10.1 D RBC 3.76 L Hgb 12.2 Hct 36.6 MCV 97.2 MCH 32.3 MCHC 33.3 RDW 13.7 Plt Count 233 Neut % (Auto) 79.7 H D Lymph % (Auto) 13.4 L [place] % (Auto) 6.7 Eos % (Auto) 0.0 L Baso % (Auto) 0.2 Neut # (Auto) 8000 H Lymph # (Auto) 1300 [place] # (Auto) 700 Eos # (Auto) 0 Baso # (Auto) 0 Sodium 138 Potassium 3.9 Chloride 106 Carbon Dioxide 22 BUN 18 H Creatinine 0.57 Estimated GFR > 60 BUN/Creatinine Ratio 31.6 H Glucose 112 H Calcium 8.6 Magnesium 2.4 H Total Creatine Kinase Troponin I TSH Free T4 PFSH Social History marital status: household members: caregiver Smoking Status: Never smoker alcohol intake: never Assessment & Plan Assessment & Plan narrative: 1. Badycardia, POAR. Resolved, no culprit medications. 2. Weakness, POAI. PT eval and follow. Discharge planning. 3. Possible acute diastolic heart failure (ECHO looks fairly good). POAI. Follow and out of bed. 4. Constipation, POA. Bowel program. 5. Hypertensive urgency, POAI. Resume lisinopril 20 daily. DNR/DNI Dispo: possible home later today or in AM pending PT eval. Time Spent With Patient Time with patient: less than 30 minutes
--- NOTE | 2023-03-09 11:57 | CM.DANOTE ---
Patient is an 87 yo female who was admitted on 03/08/23 for Weakness/bradycardia. Pt has [employer] on original products and [employer] for insurance and her PCP is Maylin Wilson. EMR was reviewed. Per MD, pt with dementia and weakness and admitted for bradycardia, constipation, hypotensive urgency. Pt's Echo results in normal range and pt's symptoms seem to be resolving and likely can d/c back to [facility] today or tomorrow pending PT/OT eval. PT/OT ordered and pending and OT bedside to attempt eval now. SW met bedside with pt who was sleeping and son/DPOA Eligio and his partner and explained role. Eligio confirms that pt resides at [facility] and moved there a couple years ago with spouse who last year and pt unsafe to live at home alone due to her memory issues. [facility] does not provide much assist but helps with meds and vitals. Pt has a walker but typically has not needed but son states that pt has needed her walker more lately and is less active and more sedentary. Son Eligio and Dtr Hillary are both DPOA's and both live locally in [place] and visit pt regularly at [facility]. Son states pt has been medically stable at her baseline but forgetful with short term memory but recognizes family and can participate in discussions. Family denies any hx of HH or SNF for patient and would be agreeable to either if recommended but also state that pt can be fairly stubborn about participating in something she doesn't want to do. Preference is return to [facility] at d/c. SW called [facility] admissions and left ms regarding possible d/c today vs tomorrow pending PT/OT and faxed clinicals to review. Plan: SW to follow closely for PT/OT recommendations to confirm return to [facility] and r/o HH and coordination from [facility] on discharge back. HERB Catherine Discharge Planning/Care Management Advanced directive, confirm from FAMILY Start: 03/08/23 17:02 Freq: Q24H Status: Complete Protocol: Document 03/08/23 17:02 KL (Rec: 03/08/23 18:19 KL [id number]) Advance Directive, confirm on record Time 18:13 Person contacted daughter Copy received No Advanced directive available on record No Document 03/08/23 20:54 CT (Rec: 03/09/23 06:55 CT [id number]) Advance Directive, confirm on record Time 18:13 Person contacted daughter Copy received No Time 20:00 Person contacted daughter Copy received Yes Advanced directive available on record Yes CM Discharge Assessment Start: 03/09/23 11:54 Freq: Status: Active Protocol: Document 03/09/23 11:54 BF (Rec: 03/09/23 11:57 BF [id number]) Discharge Planning Assessment Assigned [employer] Buster HERB Kaur DPOA/Assigned Designee Name Dtr Hillary and christina Del Valle Contact Information [phone] Advance Directives? Yes: POLST on record in scans Advance Directives on File No History Provided By Family Member,Medical Record Has Patient been admitted in last 30 No days? Prior Living Arrangements Assisted Living Household Members none Type of transporation used prior to Relies on Others admit Facility Name Admitted From: [facility] Willing to Return to Facility? Yes Independent with ADL's No: mostly indep Is patient alert and oriented? No: dementia Needs Assistance With Meal Prep,Managing Medications ,Home Chores / Shopping Caregiver for Another No DME Already Rented / Owned FWW / Walker Patient/Family Preference Home with Home Health Comment Pending PT/OT eval and recommendations Barriers to Discharge No Comment Will need to coordinate with [facility] Discharge Plan Assisted Living Facility Transportation Arrangement Likely family vs facilty van Additional Comment Waiting for PT/OT eval and recommendations to confirm return to [facility] and [facility] Whiteboard Updated in Patient Room with Yes name and ext. # of [employer] Review Status In Process Please Provide Date Initial DC 03/09/23 Assessment Was Performed Next Review Type Continued Stay Review
--- NOTE | 2023-03-09 12:08 | OT.IP.EVAL ---
Occupational Therapy Inpatient Evaluation/Re-Eval M1 PT/OT-IP Prior Functional Status Start: 03/09/23 14:44 Freq: NEEDED Status: Active Protocol: Document 03/09/23 20:52 CGR (Rec: 03/09/23 21:[address] [id number] Medical Review Prior Functional Status Medical History Reviewed No Communication Pt is an effective verbal communicator Mobility and Gait pt able to answer questions but son in room confirms info: pt has dx dementia and does not provide accurate information daughter stated that pt is modified independent with ambulation using 4WW but tends to forget her 4WW and has had a few falls; stated that 4WW was pt's late spouse's. pt stated that she is able to walk without AD but tends to wall/furniture cruise pt able to do bed mobility and toileting by herself but requires SBA/set up with shower needs Activities of Daily Living and IADL's Pt's son is unsure of how much assist pt needs with bathing and dressing at baseline but states that [facility] staff have stated that pt is starting to become resistant to showering . Pt feeds and toilets IND. Social History Household Members none Living Arrangements Assisted Living Number of Floors (Floors) One Floor Number of Stairs To Enter/Railing? pt lives at [facility] Home Environment Standard Height Toilet,Walk in Shower Home Equipment Four Wheel Walker,Shower Seat with Backrest,Hand Held Shower ,Grab Bars Near Toilet,Grab Bars In Shower Employment Status Retired Additional Social History Comment Pt and her have been at [facility] for some time. Pt's passed ~1 year ago and she does not remember that he has passed. Pt's children state that they just answer her questions telling the pt that her is fine. M2 OT-IP Current Condition Start: 03/09/23 20:52 Freq: Status: Active Protocol: Document 03/09/23 20:52 CGR (Rec: 03/09/23 21:06 CGR [id number]) Occupational Therapy Current Condition Current Condition Evaluation Date 03/09/23 Treatment Diagnosis found down, alzheimers, bradycardia Diagnosis Onset Date 03/08/23 M3 OT- IP Subjective and Pain Start: 07/27/23 20:52 Freq: Status: Active Protocol: Document 03/09/23 20:52 CGR (Rec: 03/09/23 21:06 CGR [id number]) OT- Subjective Occupational Therapy Visit Type Type Initial Evaluation Visit Start Time 11:44 Visit Stop Time 12:08 Total Visit Minutes 24 Notes Pt's son present throughout session. Pt is sleeping when OT entered. Occupational Therapy Visit Comments Patient Comments oh my, its 12, I can't believe I slept that long. OT Pain Assessment Pain When Pain Assessed At Rest Pain Present Pain Present Denied Pain M4 OT- IP ADL's Start: 03/09/23 20:52 Freq: Status: Active Protocol: Document 03/09/23 20:52 CGR (Rec: 03/09/23 21:06 CGR [id number]) OT [id number] Comments OT Self-Feeding Comments not meal time but pt is able to drink water from cup with straw OT ADL-Grooming General Evaluation Grooming Ability Standby Assistance Areas Needing Assistance Retrieving/Set-up of Grooming Items,Face Washing Comments OT Grooming Comments standing at sink OT ADL-Oral Care General Eval Oral Care Ability Standby Assistance Areas of Assistance Brushing Teeth Comments Oral Care Comments standing at sink OT ADL-Dressing General Eval Lower Body Dressing Ability Independent Areas Needing Assistance Socks Comments OT Dressing Comments seated in chair OT ADL-Toileting Comments OT Toileting Comments not performed OT ADL-Bathing Comments OT Bathing Comments not performed M5 OT- IP IADL's Start: 03/09/23 20:52 Freq: Status: Active Protocol: Document 03/09/23 20:52 CGR (Rec: 03/09/23 21:06 CGR [id number]) OT-Instrumental Activities of Daily Living Deficits IADL Deficits Identified Deficits Home Safety Awareness Awareness of Need for Assistance at Home Decreased Awareness Ability to Problem Solve Emergency Unable to Problem Solve Situations Medication Management Medication Management Caregiver Administers Money Management Money Management Caregiver Provides Assistance Meal Preparation Meal Preparation Caregiver Provides Assist Dropper Tank Storage Dropper Tank Storage Caregiver Provides Assist Driving Driving Comments Pt does not drive at baseline M6 OT- IP Functional Cognition Start: 03/09/23 20:52 Freq: Status: Active Protocol: Document 03/09/23 20:52 CGR (Rec: 03/09/23 21:06 CGR [id number]) Cognitive Factors Limiting Selfcare Function Cognitive Ability Level of Alertness Alert Patient Orientation Name,Place Attention Span Ability Capable of Focused Attention, Capable of Sustained Attention Ability to Follow Commands Able to Follow One Step Commands with Increased Time, Able to Follow One Step Commands with Repetition Cognitive Comments Cognitive Assessment Comments pt with advanced dementia but is pleasently confused and still with good reasoning OT- Vision and Hearing OT- Hearing Assessment OT- Hearing Assessment WFL OT- Vision Assessment Visual Acuity WFL M7 OT- IP Mobility and Balance Start: 03/09/23 20:52 Freq: Status: Active Protocol: Document 03/09/23 20:52 CGR (Rec: 03/09/23 21:06 CGR [id number]) OT- Bed Mobility Assessment Rolling Type of Rolling Roll to Left Level of Assistance Standby Assistance Supine to Sit Supine to Sit Assist Standby Assistance Scooting Scooting to Edge of Bed Standby Assistance OT-Transfer Assessment Sit to and From Stand Sit to and from Stand Standby Assistance Transfers Transfer Ability Minimal Assistance Technique Transfer Destination Bed,Chair Transfer Technique Stand Step Pivot Devices Transfer Assistive Devices Gait Belt,Front Wheeled Walker Comments Mobility Comments Pt stood from bed and ambulated to sink for ADLs. Pt with LOB at sink requiring min a. Pt is forgetful about her walker and reaches for furniture. OT- Balance Assessment Sitting Balance and Reactions Static Sitting Balance Ability Good Dynamic Sitting Balance Ability Good M8 OT- IP Objective Assessments Start: 03/09/23 20:52 Freq: Status: Active Protocol: Document 03/09/23 20:52 CGR (Rec: 03/09/23 21:06 CGR [id number]) OT Gross Range of Motion Upper Extremity Range of Motion Assessment Within Functional Limits OT Strength Upper Extremity Strength Assessment Within Functional Limits Comments Strength Comments 4/5 OT- Coordination Assessment Upper Extremity Finger to Nose Test Within Functional Limits Finger Tapping Test Within Functional Limits OT-Muscle Tone Assessment Muscle Tone WNL Yes OT Sensation Assessment Edema Edema Absent M9 OT- IP Assessment and Plan Start: 03/09/23 20:52 Freq: Status: Active Protocol: Document 03/09/23 20:52 CGR (Rec: 03/09/23 21:06 CGR [id number]) OT Summary Assessment and Plan Potential Rehabilitation Potential Fair Analytic Complexity at Evaluation Moderate Summary OT Impairments Balance,Functional Cognition, Functional Mobility,Dressing, Toileting,Bathing,Toilet Transfers,Shower Transfers, Activity Tolerance Progress Towards Goals Slow Progress due to Cognition Assessment Summary Pt presents as a moderate complexity evaluation s/p admit for falls and bradycardia. Pt with advanced dementia but follows directions and participates effectively in therapy. Pt would benefit from continued OT services. Recommend d/c to SNF for return to baseline before returning to [facility]. Goals Self-Feeding Goal Independent Grooming Goal Independent Dressing Goal Independent Toileting Goal Independent Bathing Goal Independent Toilet Transfer Goal Independent Shower Transfer Goal Independent Days to Meet Goals 10 Frequency of Treatment Frequency Of Treatment Once a Day Treatment Plan OT Treatment Plan ADL Training,Functional Cognition Training,Functional Mobility,Patient/Family Education,Discharge Planning Other Treatment Recommendations and Next Shower Treatment Focus Discharge Recommendations OT Discharge Recommendations SNF Rehab Transportation Needs at Discharge Private Vehicle
--- NOTE | 2023-03-09 15:00 | PT.IIE ---
Physical Therapy Inpatient Evaluation/Re-Eval M1 PT/OT-IP Prior Functional Status Start: 03/09/23 14:44 Freq: NEEDED Status: Active Protocol: Document 03/09/23 15:00 AB (Rec: 03/09/23 16:28 AB [id number]) Medical Review Prior Functional Status Medical History Reviewed No Communication able to make needs known Mobility and Gait pt able to answer questions but daughter in room confirms info: pt has dx dementia and does not provide accurate information daughter stated that pt is modified independent with ambulation using 4WW but tends to forget her 4WW and has had a few falls; stated that 4WW was pt's late spouse's. pt stated that she is able to walk without AD but tends to wall/furniture cruise pt able to do bed mobility and toileting by herself but requires SBA/set up with shower needs Social History Household Members none Living Arrangements Assisted Living Number of Floors (Floors) One Floor Number of Stairs To Enter/Railing? pt lives at [facility] Environment Standard Height Toilet,Walk in Shower Home Equipment Four Wheel Walker,Shower Seat with Backrest,Hand Held Shower ,Grab Bars Near Toilet,Grab Bars In Shower M2 PT-IP Current Condition Start: 03/09/23 14:44 Freq: NEEDED Status: Active Protocol: Document 03/09/23 15:00 AB (Rec: 03/09/23 16:28 AB [email or web address]) Physical Therapy Current Condition Current Condition Evaluation Date 03/09/23 Treatment Diagnosis bradycardia; weakness; difficulty in walking Onset Date 03/08/23 M3 PT-IP Subjective Start: 03/09/23 14:44 Freq: NEEDED Status: Active Protocol: Document 03/09/23 15:00 AB (Rec: 03/09/23 16:28 AB [id number]) Subjective Physical Therapy Visit Type Type Initial Evaluation Visit Start Time 15:00 Visit Stop Time 15:50 Total Visit Minutes 50 Number of COUNSEL Visits 0 Physical Therapy Visit Comments Patient Comments agreeable to do PT Therapy Pain Assessment Pain Present Pain Present Denied Pain M4 PT-IP Mobility and Gait Start: 03/09/23 14:44 Freq: NEEDED Status: Active Protocol: Document 03/09/23 15:00 AB (Rec: 03/09/23 16:28 AB [id number]) PT-Bed Mobility Assessment Sit to Supine Sit to Supine Standby Assistance PT-Transfer Assessment Sit to and From Stand Sit to and from Stand Contact Guard Assistance,1 Person Assistance,Use of Upper Extremities Equipment Transfer Assistive Device Gait Belt,4 Wheeled Walker Orthotic/Prosthetic Devices or Brace: No Transfers Transfer Technique ambulated Transfer Ability Level of Assist Contact Guard Assistance, Minimal Assistance,1 Person Assistance,Use of Upper Extremities Comments Mobility Comments pt walking to the toilet using 4WW with daughter assisting. pt presents with unsteady gait with 4WW too far forward from pt. daughter assisted pt with toileting needs and ambulation to the chair using 4WW. pt unable to use 4WW safely. pt agreed to do PT. PLOF and home set up obtained. educated pt on use of 4WW and lock/ locking brakes. pt completed sit to stand and tends to pull on 4WW to get up. educated pt on sit<>stand techniques and completed CGA with max cues. pt ambulated using 4WW CGA with cues to slow down. pt tends to run into things with walker during ambulation. pt sat back on the chair. Assessed ambulation using FWW. pt completed sit to stand CGA and continues to require max cues for techniques. ambulated in room SBA to CGA using FWW. pt with steadier gait. pt sat back on the chair . educated pt and daughter regarding FWW recommendation at this time. daughter agreed and will get one for pt. assessed ambulation without AD and pt completed min A. pt tends to reach for the counter /bed for support. increase lateral lean to the L with slow recovery to the center with tendency of RLE to cross over midline /L side. (+) LOB x 2 with min A for safety. pt sat on the EOB. completed sit to supine SBA and cues. positioned pt in bed. call light and table placed within reach. daughter stated that pt has not been eating much and has a few episodes of coughing/ gagging after eating for the passed 2-3 days. informed nurse and nurse will screen and will ask for AIRCRAFT POWERPLANT REPAIRER order if needed. Gait Assessment Gait Gait Assistance Required: Contact Guard Assist,Minimum Assistance,1 Person Assist Distance (Feet) 30 Able to Maintain Weight Bearing Status Yes During Gait Assistive Devices Assistive Device None,Gait Belt,Front Wheeled Walker,4 Wheeled Walker Orthotic/Prosthetic Devices or Brace: No Gait Deviations General Gait Pattern Decreased Stride Length, Decreased Feet Clearance, Narrow Based Gait,Step-to Gait Factors Limiting Gait Function Factors Limiting Gait Function Decreased Activity Tolerance, Decreased Strength,Limited Range of Motion,Poor Balance, Poor Safety Awareness PT-Balance Assessment Sitting Balance and Reactions Static Sitting Balance Ability Good Dynamic Sitting Balance Ability Good Standing Balance and Reactions Static Standing Balance Ability Fair Dynamic Standing Balance Ability Fair Device Used without AD M5 PT-IP Objective Assessments Start: 03/09/23 14:44 Freq: NEEDED Status: Active Protocol: Document 03/09/23 15:00 AB (Rec: 03/09/23 16:28 AB [email or web address]) Orientation Orientation/Cognition Level of Alertness Alert Orientation Name Safety Awareness Decreased Safety Awareness Memory Description Short Term Impaired,Fiberglass Technician Impaired Gross Range of Motion Lower Extremity ROM Assessment Within Functional Limits Strength Lower Extremity Strength Assessment Within Functional Limits Muscle Tone Muscle Tone WNL Yes M6 PT-IP Treatment Start: 03/09/23 14:44 Freq: NEEDED Status: Active Protocol: Document 03/09/23 15:00 AB (Rec: 03/09/23 16:28 AB [email or web address]) Physical Therapy Treatment Education Education Provided Safety M7 PT-IP Assessment and Plan Start: 03/09/23 14:44 Freq: NEEDED Status: Active Protocol: Document 03/09/23 15:00 AB (Rec: 03/09/23 16:28 AB [email or web address]) PT Summary Assessment and Plan Potential Rehabilitation Potential Fair Status of Condition at Evaluation Evolving Summary Impairments ROM,Strength,Balance, Coordination,Cognition,Bed Mobility,Transfers,Gait, Activity Tolerance Assessment Summary pt presented to the ED due to weakness with pt found on the floor. pt lives at [facility] . pt admitted for bradycardia and weakness. pt with dx of Alzheimer's dementia contributing to safety and functional independence. pt requiring CGA with ambulation using FWW and max cues with all tasks. pt will require 24 /7 assist available. pt may go back to [facility] if they will be able to provide necessary assistance to pt and will need HHPT vs SNF. will continue to assess. Goals Bed Mobility Goal Independent Transfer Goal Independent,Front Wheeled Walker Gait Goal Independent,Front Wheel Walker Gait Distance 200 Other Goals improve transfers and ambulation without AD 50 ft SBA Days to Meet Goals 10 Frequency of Treatment Frequency Of Treatment Once a Day Treatment Plan Physical Therapy Treatment Plan Bed Mobility Training,Transfer Training,Gait Training, Therapeutic Exercise,Balance Retraining,Discharge Planning, Hot or Cold Pack,Neuromuscular Re-ed,Coordination Retraining Precautions Other Precautions falls Recommendations To Nursing Amount of Assist Needed 1 Person Assist Discharge Recommendations PT Discharge Recommendations Home with 06/03 Assist Available,Home Health,SNF Rehab,Home vs SNF Other Discharge Recommendations [facility] vs SNF Equipment Needed for Home Before FWW Discharge Transportation Needs at Discharge Private Vehicle,Wheelchair/ Cabulance
--- NOTE | 2023-03-09 16:06 | PC.NURSE ---
Pt mentioned to this nurse that, per daughter, patient has had some difficulty swallowing and thus a decreased appetite for about the past month. Swallow screen completed by this nurse at bedside: pt needed 4 swallows to completely swallow the applesauce but had no apparent issue with thickened apple juice. Results communicated with .
--- NOTE | 2023-03-09 16:41 | PM.DS.1 ---
History of Present Illness History of Present Illness Date Patient Seen: 03/09/23 Time Patient Seen: 16:41 Date of Onset of Symptoms: 03/08/23 Chief complaint: alzheimer's found on floor next to bed, & weakness Narrative: From H&P: migel Liz is an 87-year-old female with past medical history of dementia, hypertension, hyperlipidemia, hypothyroidism, and glaucoma who presents with NV, weakness and bradycardia.? Patient reportedly had a heart rate down to 37.? Kendra, Cardiology called who recommended admission for echo and telemetry.? Patient's family at the bedside providing history as patient is sleeping and has dementia.? They say she has been feeling more weak and this is unlike her.? They said in the ED she was having a coughing of foamy sputum and would choke on it. CT chest abdomen pelvis in the ED showed cholelithiasis without gallbladder wall thickening, septal thickening consistent with pulmonary edema or ILD, diverticulosis and a large amount of stool in the rectum. HR has been high 40's. BP elevated to 200's and patient asymptomatic. Discharge Providers Provider Date of admission: 03/08/23 15:59 Discharge Date: 03/09/23 Primary care physician: Maylin Wilson MD Consults: 03/08/23 16:44 Consult to Occupational Therapy Evaluate & Treat Comment: Physician Instructions: Evaluate and treat Consult to Physical Therapy Evaluate & Treat Comment: Physician Instructions: Evaluate and Treat 03/09/23 14:15 Consult to Physical Therapy Evaluate & Treat Comment: Physician Instructions: Evaluate and Treat Discharge provider: Terell Easley MD Summary Hospital Course Discharge Diagnosis: 1. Badycardia, POAR. Resolved, no culprit medications. 2. Weakness, POAI. PT eval and follow. Discharge planning. 3. Possible acute diastolic heart failure (ECHO looks fairly good). POAI. Follow and out of bed. 4. Constipation, POA. Bowel program. 5. Hypertensive urgency, POAI. Resume lisinopril 20 daily. Hospital Course: Patient was admitted with bradycardia and hypertensive urgency. She improved with no interventions. She takes lisinopril for BP. On the day of discharge she was at baseline. Met with daughter who was comfortable taking her home to [place]. There was some possible dysphagia noted. This was discussed with daughter and options were also discussed. She will keep an eye on this. Will do BP twice a day until follow up. Status at Discharge Cognitive/behavioral status at discharge: oriented Functional status at discharge: uses cane/walker Overall status at discharge: patient is back to baseline Time Spent with Patient Time spent: Greater than 30 minutes Exam Vital Signs (past 8 hours): - 03/09/23 13:12 Temperature 97.5 F L Pulse Rate 56 L Respiratory Rate 16 Blood Pressure 130/46 L Pulse Oximetry 94 Oxygen Delivery Method Room Air Oxygen Flow Rate 0 Narrative Exam Narrative: NAD Lungs clear Heart regular Abdomen soft NT No leg edema Objective Imaging Echo: Radiologist's impression: The ejection fraction is estimated to be 60-65%. Grade II diastolic dysfunction. The left atrium is moderately dilated. The right ventricle is normal in size and function. The right atrium is mildly dilated. There is mild mitral regurgitation. There is mild aortic regurgitation. There is mild to moderate tricuspid regurgitation. Right ventricular systolic pressure is estimated to be 31 mmHg plus the clinically estimated CVP which cannot be estimated on this exam. ? CT scan - abdomen: Radiologist's impression: 1.? Bilateral subpleural septal thickening may be secondary to pulmonary edema or interstitial lung disease. ? 2.? A 0.8 cm nodule in the right middle lobe.? Please see enclosed follow-up recommendation. ? 3.? Mild cardiomegaly and moderate to severe coronary artery atherosclerosis. ? 4. Cholelithiasis. ? 5. Question mild colonic wall thickening involving transverse colon and descending colon. ?Differential diagnoses are mild colitis versus artifact from inadequate distention.? ? 6. Diverticulosis without acute diverticulitis. ? 7. A large amount of stool in the distal colon and rectum.? ? 8. Myomatous uterus with a calcified uterine fibroid.? Uterus is prominent for the patient's age.? Consider pelvic ultrasound for follow-up ? CT scan - head: Radiologist's impression: 1. No acute intracranial abnormalities. ? 2. Cerebral volume loss and chronic microvascular ischemic changes. ? Chest x-ray: Radiologist's impression: IMPRESSION:? Mild cardiomegaly and increased pulmonary vascularity suggesting mild CHF. Labs 03/09/23 04:55 03/09/23 04:55 Labs: Laboratory Results - last 24 hr 03/08/23 03/08/23 03/09/23 14:47 14:47 04:55 WBC RBC Hgb Hct MCV MCH MCHC RDW Plt Count Neut % (Auto) Lymph % (Auto) [place] % (Auto) Eos % (Auto) Baso % (Auto) Neut # (Auto) Lymph # (Auto) [place] # (Auto) Eos # (Auto) Baso # (Auto) Sodium Potassium Chloride Carbon Dioxide BUN Creatinine Estimated GFR BUN/Creatinine Ratio Glucose Calcium Magnesium 1.9 2.4 H TSH 7.94 H Free T4 1.55 03/09/23 03/09/23 04:55 04:55 WBC 10.1 D RBC 3.76 L Hgb 12.2 Hct 36.6 MCV 97.2 MCH 32.3 MCHC 33.3 RDW 13.7 Plt Count 233 Neut % (Auto) 79.7 H D Lymph % (Auto) 13.4 L [place] % (Auto) 6.7 Eos % (Auto) 0.0 L Baso % (Auto) 0.2 Neut # (Auto) 8000 H Lymph # (Auto) 1300 [place] # (Auto) 700 Eos # (Auto) 0 Baso # (Auto) 0 Sodium 138 Potassium 3.9 Chloride 106 Carbon Dioxide 22 BUN 18 H Creatinine 0.57 Estimated GFR > 60 BUN/Creatinine Ratio 31.6 H Glucose 112 H Calcium 8.6 Magnesium TSH Free T4 PFSH Social History marital status: household members: none Smoking Status: Never smoker alcohol intake: never Discharge Assessment & Plan Assessment and Plan Assessment: 1. Badycardia, POAR. Resolved, no culprit medications. 2. Weakness, POAI. PT eval and follow. Discharge planning. 3. Possible acute diastolic heart failure (ECHO looks fairly good). POAI. Follow and out of bed. 4. Constipation, POA. Bowel program. 5. Hypertensive urgency, POAI. Resume lisinopril 20 daily. Plan of Treatment: Discharge to [place] Resume all baseline meds Twice a day BP measurements PCP within 1 week Daughter will keep an eye on swallow. Discharge Plan Discharge Plan Patient Disposition: Home Provider Discharge Comment: stable for discharge to [facility] Discharge orders & Medications Prescriptions: Continued fenofibrate micronized 134 mg capsule 134 mg PO QAM latanoprost 0.005 % drops 1 drp EYE-BOTH QAM atorvastatin 80 mg tablet 80 mg PO BEDTIME sennosides [senna] 8.6 mg tablet 17.2 mg PO BID acetaminophen 325 mg tablet 650 mg PO QID PRN (Reason: Pain (Scale Score 1-3)) citalopram 10 mg tablet 10 mg PO QAM hydrocodone-acetaminophen 5-325 mg Tablet 1 tab PO BID PRN (Reason: Pain (Scale Score 4-6)) lisinopril 20 mg tablet 20 mg PO BEDTIME melatonin 3 mg Tablet 3 mg PO BEDTIME PRN (Reason: Insomnia) levothyroxine 75 mcg tablet 75 mcg PO QAM lorazepam 0.5 mg tablet 0.5 mg PO 3XD PRN (Reason: Anxiety) aspirin 81 mg tablet,chewable 1 tab PO QAM dorzolamide-timolol 22.3-6.8 mg/mL drops 1 drp EYE-BOTH BID docusate sodium 250 mg capsule 250 mg PO BID cholecalciferol (vitamin D3) 25 mcg (1,000 unit) tablet 2,000 unit PO QAM Follow up/Referrals: Maylin Wilson MD [Primary Care Provider] - Discharge Health Status Multidrug resistant organism: No MDRO Diet/Activity/Treatments Diet: Diet as Tolerated Visit Report/Discharge Packet Stand Alone Forms: Patient Portal/API Discharge Data Primary Care Provider: Maylin Wilson Attending Provider: Barron Dowling Admit Date/Time: 03/08/23 15:59 Quality MIPS - DC The patient has a history of heart transplant or Left Ventricular Assist Device (LVAD). If yes, STOP here.: No The patient has current or prior documentation of left ventricular ejection fraction (LVEF) less than or equal to 40%, or moderate or severely depressed left ventricular systolic function.: No
[2023-03-09 16:53] LABS: Troponin I 0.092 ng/mL (0.01-0.034)
--- NOTE | 2023-03-09 17:18 | CM.DPC ---
DCP Continued: Per nursing staff, provider had placed d/c orders for patient. Patient lives at [facility] and they require approval to return to their facility. Per additional d/c convention planner notes, SW had called and lvms with [facility] to let them know their patient would be ready for d/c today. [employer]ELOPER called and left two voicemails in an attempt to get ahold of someone. No response. CM team will follow up in morning. Plan: patient will d/c home to [facility] when [facility] can be reached. CM team will continue to follow closely. HERB Pratt
--- NOTE | 2023-03-09 18:28 | PC.NURSE ---
Around 1730, this nurse called to bedside by pt's daughter. Pt stating she doesn't feel good but is unable to specify what doesn't feel good. No c/o pain, nausea or SOB. Hypertensive 177/58 HR 54, otherwise VS unremarkable. Pt lethargic but still oriented to self, no longer able to state location. CMS symmetrical bilaterally. MD informed of change in condition, discharge cancelled.
[2023-03-09] MEDS: lisinopriL 20 MG TABLET PO (21:18)
[2023-03-09] MEDS: ATORVASTATIN 20 MG TABLET 80 MG PO (21:18)
[2023-03-10] VITALS: BP 151/52; PULSE 56; RESP 16; TEMP 36.3; O2SAT 96
[2023-03-10 04:00] VITALS: BP 167/59; PULSE 61; RESP 16; TEMP 36.2; O2SAT 97
[2023-03-10 05:03] LABS: Add Manual Diff / Slide Review NO; Basophils Absolute Auto 0 /uL (0-100); Basophils Percent Auto 0.3 % (0-2); Eosinophils Absolute Auto 100 /uL (0-450); Eosinophils Percent Auto 1.3 % (2-4); Hematocrit 34.8 % (36-46); Hemoglobin 11.8 g/dL (12.0-16.0); Lymphocytes Absolute Auto 1200 /uL (1100-4500); Lymphocytes Percent Auto 16.8 % (25-40); Mean Corpuscular HGB Conc 33.9 % (30-36); Mean Corpuscular Hemoglobin 32.4 PG (26-34); Mean Corpuscular Volume 95.7 fL (80-100); Monocytes Absolute Auto 500 /uL (0-900); Monocytes Percent Auto 6.7 % (3-14); Neutrophils Absolute Auto 5200 /uL (1500-7000); Neutrophils Percent Auto 74.9 % (50-75); Platelet Count 203 X10^3/uL (150-400); Red Blood Cell Count 3.64 X10^6/uL (4.0-5.2); Red Cell Distribution Width 13.9 % (11.6-14.8); White Blood Cell Count 6.9 X10^3/uL (4.5-11.0)
[2023-03-10 05:09] LABS: Magnesium 2.2 mg/dL (1.6-2.3)
[2023-03-10 05:10] LABS: BUN Creatinine Ratio 35.1 (6-22); Blood Urea Nitrogen 20 mg/dL (7-17); Calcium 8.4 mg/dL (8.4-10.2); Carbon Dioxide 25 mmol/L (22-32); Chloride 104 mmol/L (98-107); Estimated Glomerular Filt Rate > 60 mL/min (>60); Glucose 98 mg/dL (80-110); HEMOLYSIS < 15 (0-50); Potassium 3.9 mmol/L (3.4-5.1); Sodium 133 mmol/L (137-145)
[2023-03-10 07:47] VITALS: BP 167/67; PULSE 67; RESP 16; TEMP 36.6; O2SAT 97
--- NOTE | 2023-03-10 07:58 | CM.DPC ---
Addendum entered by Lanette Ramsay R.N. 03/10/23 09:26: Spoke to Nancy Arias, at [facility]. Stated, we heard around 6:00pm that she was ready, but too late. Confirmed that they will be picking patient up at 1330. Will fax over orders, hospitalist was updated. Addendum entered by Lanette Ramsay R.N. 03/10/23 08:32: Was able to to get in touch with Hillary seo. She did state, they kept her mom because she became a little bit unresponsive, and the hospitalist wanted to keep her another day. Let her know that this DC Steward[employer] will update her if ready for DC today. She is aware that it is sometimes difficult to get in touch with [facility]. Will know more after team rounds, but most likely will be ready for discharge today. Addendum entered by Lanette Ramsay R.N. 03/10/23 08:20: It is noted that patient was supposed to discharge yesterday, orders were placed in the pm, but [facility] did not respond. Called Mia at [facility], she stated to call Nancy. Called Nancy rAias and let her know that patient was supposed to discharge yesterday. If no response from Nancy, will try Joaquin Hines at ext [phone], and will speak to Hillary seo, as well Original Note: DCP Cont: Left message with special education administrator and nursing department at [facility], indicating that patient could be ready to return to their facility. If no response in the next couple of hours, will call Mia over at [facility] to see who the contact is. P: DCP to continue to follow. Plan is to return to [facility], but need to get in contact with someone at their facility. Lanette Ramsay, GURVINDER/[employer] Machine Operator
[2023-03-10] MEDS: FENOFIBRATE, MICRONIZED 67 MG CAPSULE 134 MG PO (09:04)
[2023-03-10] MEDS: CHOLECALCIFEROL (VITAMIN D3) 1,000 UNIT TABLET 2000 UNIT PO (09:04)
[2023-03-10] MEDS: DOCUSATE 100 MG CAPSULE 200 MG PO (09:04)
[2023-03-10] MEDS: CITALOPRAM 10 MG TABLET PO (09:04)
[2023-03-10] MEDS: ASPIRIN 81 MG CHEW TAB PO (09:04)
[2023-03-10] MEDS: LEVOTHYROXINE 75 MCG TABLET PO (09:05)
[2023-03-10] MEDS: DORZOLAMIDE/TIMOLOL OPHTH 10 ML 1 DROPS EYE-BOTH (09:11)
[2023-03-10] MEDS: LATANOPROST 0.005% OPHTH 2.5 ML 1 DROPS EYE-BOTH (09:11)
[2023-03-10] MEDS: ENOXAPARIN 40 MG/0.4 ML SYRINGE SUBCUT (09:15)
--- NOTE | 2023-03-10 11:41 | P.DS_ITS ---
History of Present Illness History of Present Illness Date Patient Seen: 03/10/23 Time Patient Seen: 11:41 Date of Onset of Symptoms: 03/08/23 Chief complaint: alzheimer's found on floor next to bed, & weakness Narrative: From H&P: migel Liz is an 87-year-old female with past medical history of dementia, hypertension, hyperlipidemia, hypothyroidism, and glaucoma who presents with NV, weakness and bradycardia.? Patient reportedly had a heart rate down to 37.? Kendra, Cardiology called who recommended admission for echo and telemetry.? Patient's family at the bedside providing history as patient is sleeping and has dementia.? They say she has been feeling more weak and this is unlike her.? They said in the ED she was having a coughing of foamy sputum and would choke on it. CT chest abdomen pelvis in the ED showed cholelithiasis without gallbladder wall thickening, septal thickening consistent with pulmonary edema or ILD, diverti culosis and a large amount of stool in the rectum. HR has been high 40's. BP elevated to 200's and patient asymptomatic. Discharge Providers Provider Date of admission: 03/08/23 15:59 Discharge Date: 03/10/23 Primary care physician: Maylin Wilson MD Consults: 03/08/23 16:44 Consult to Occupational Therapy Evaluate & Treat Comment: Physician Instructions: Evaluate and treat Consult to Physical Therapy Evaluate & Treat Comment: Physician Instructions: Evaluate and Treat 03/09/23 14:15 Consult to Physical Therapy Evaluate & Treat Comment: Physician Instructions: Evaluate and Treat Discharge provider: Terell Easley MD Summary Hospital Course Discharge Diagnosis: Discharge Diagnosis: 1. Badycardia, POAR. Resolved, no culprit medications. 2. Weakness, POAI. PT eval and follow. Discharge planning. 3. Possible acute diastolic heart failure (ECHO looks fairly good). POAI. Follow and out of bed. 4. Constipation, POA. Bowel program. 5. Hypertensive urgency, POAI. Resume lisinopril 20 daily. Hospital Course: Patient was admitted with bradycardia and hypertensive urgency. She improved with no interventions. She takes lisinopril for BP. On the day of discharge she was at baseline. Met with daughter who was comfortable taking her home to [place]. There was some possible dysphagia noted. This was discussed with daughter and options were also discussed. She will keep an eye on this. Will do BP twice a day until follow up. Hospital Course: The patient was admitted with weakness and bradycardia. This resolved without intervention. There were no culprit medications. An ECHO was fairly normal, tele unremarkable and a second troponin had a very mild bump. She was going to discharge 03/09 around 17:00 but had an episode of agitation and worsening confusion (sun-downing?) that prompted watching her a second night. She was at baseline on 03/10 and I met with daughter who agreed with discharge back to her [place] facility. Goals of care: Keep it simple, DNR, no heroics. Status at Discharge Cognitive/behavioral status at discharge: at baseline, confused Functional status at discharge: uses cane/walker Overall status at discharge: patient is back to baseline Time Spent with Patient Time spent: Greater than 30 minutes Exam Vital Signs (past 8 hours): - 03/10/23 04:00 03/10/23 07:47 Temperature 97.2 F L 97.8 F Pulse Rate 61 67 Respiratory Rate 16 16 Blood Pressure 167/59 H 167/67 H Pulse Oximetry 97 97 Oxygen Flow Rate 0 0 Oxygen Delivery Method Room Air Oxygen Flow Rate 0 Narrative Exam Narrative: NAD, normal speech Lungs are clear with normal effort Heart is regular Abdomen soft and non-tender No leg edema Objective ECG Impression: NSR Imaging Chest x-ray: Radiologist's impression: IMPRESSION:? Mild cardiomegaly and increased pulmonary vascularity suggesting mild CHF. Echo: Radiologist's impression: The ejection fraction is estimated to be 60-65%. Grade II diastolic dysfunction. The left atrium is moderately dilated. The right ventricle is normal in size and function. The right atrium is mildly dilated. There is mild mitral regurgitation. There is mild aortic regurgitation. There is mild to moderate tricuspid regurgitation. Right ventricular systolic pressure is estimated to be 31 mmHg plus the clinically estimated CVP which cannot be estimated on this exam. CT scan - head: Radiologist's impression: 1. No acute intracranial abnormalities. ? 2. Cerebral volume loss and chronic microvascular ischemic changes. CT scan - abdomen: Radiologist's impression: 1.? Bilateral subpleural septal thickening may be secondary to pulmonary edema or interstitial lung disease. ? 2.? A 0.8 cm nodule in the right middle lobe.? Please see enclosed follow-up recommendation. ? 3.? Mild cardiomegaly and moderate to severe coronary artery atherosclerosis. ? 4. Cholelithiasis. ? 5. Question mild colonic wall thickening involving transverse colon and descending colon. ?Differential diagnoses are mild colitis versus artifact from inadequate distention.? ? 6. Diverticulosis without acute diverticulitis. ? 7. A large amount of stool in the distal colon and rectum.? ? 8. Myomatous uterus with a calcified uterine fibroid.? Uterus is prominent for the patient's age.? Consider pelvic ultrasound for follow-up Labs 03/10/23 04:39 03/10/23 04:39 Labs: Laboratory Results - last 24 hr 03/09/23 03/10/23 03/10/23 16:15 04:39 04:39 WBC 6.9 RBC 3.64 L Hgb 11.8 L Hct 34.8 L MCV 95.7 MCH 32.4 MCHC 33.9 RDW 13.9 Plt Count 203 Neut % (Auto) 74.9 Lymph % (Auto) 16.8 L [place] % (Auto) 6.7 Eos % (Auto) 1.3 L Baso % (Auto) 0.3 Neut # (Auto) 5200 Lymph # (Auto) 1200 [place] # (Auto) 500 Eos # (Auto) 100 Baso # (Auto) 0 Sodium Potassium Chloride Carbon Dioxide BUN Creatinine Estimated GFR BUN/Creatinine Ratio Glucose Calcium Magnesium 2.2 Troponin I 0.092 H 03/10/23 04:39 WBC RBC Hgb Hct MCV MCH MCHC RDW Plt Count Neut % (Auto) Lymph % (Auto) [place] % (Auto) Eos % (Auto) Baso % (Auto) Neut # (Auto) Lymph # (Auto) [place] # (Auto) Eos # (Auto) Baso # (Auto) Sodium 133 L Potassium 3.9 Chloride 104 Carbon Dioxide 25 BUN 20 H Creatinine 0.57 Estimated GFR > 60 BUN/Creatinine Ratio 35.1 H Glucose 98 Calcium 8.4 Magnesium Troponin I [facility] Social History marital status: household members: none Smoking Status: Never smoker alcohol intake: never Discharge Assessment & Plan Assessment and Plan Assessment: 1. Badycardia, POAR. Resolved, no culprit medications. 2. Weakness, POAI. PT eval and follow. Discharge planning. 3. Possible acute diastolic heart failure (ECHO looks fairly good). POAI. Follow and out of bed. 4. Constipation, POA. Bowel program. 5. Hypertensive urgency, POAI. Resume lisinopril 20 daily. 6.Episode of agitation (03/09), new and resolved. Plan of Treatment: Discharge to [place] Resume all baseline meds Twice a day BP measurements PCP within 1 week Daughter will keep an eye on swallow. Discharge Plan Discharge Plan Patient Disposition: Home Provider Discharge Comment: stable for discharge to [facility] Discharge orders & Medications Prescriptions: Continued fenofibrate micronized 134 mg capsule 134 mg PO QAM latanoprost 0.005 % drops 1 drp EYE-BOTH QAM atorvastatin 80 mg tablet 80 mg PO BEDTIME sennosides [senna] 8.6 mg tablet 17.2 mg PO BID acetaminophen 325 mg tablet 650 mg PO QID PRN (Reason: Pain (Scale Score 1-3)) citalopram 10 mg tablet 10 mg PO QAM hydrocodone-acetaminophen 5-325 mg Tablet 1 tab PO BID PRN (Reason: Pain (Scale Score 4-6)) lisinopril 20 mg tablet 20 mg PO BEDTIME melatonin 3 mg Tablet 3 mg PO BEDTIME PRN (Reason: Insomnia) levothyroxine 75 mcg tablet 75 mcg PO QAM lorazepam 0.5 mg tablet 0.5 mg PO 3XD PRN (Reason: Anxiety) aspirin 81 mg tablet,chewable 1 tab PO QAM dorzolamide-timolol 22.3-6.8 mg/mL drops 1 drp EYE-BOTH BID docusate sodium 250 mg capsule 250 mg PO BID cholecalciferol (vitamin D3) 25 mcg (1,000 unit) tablet 2,000 unit PO QAM Medication counseling provided by Pharmacist: No Follow up/Referrals: Maylin Wilson MD [Primary Care Provider] - Discharge Health Status Multidrug resistant organism: No MDRO Diet/Activity/Treatments Diet: Diet as Tolerated Skin/Wound/Dressing Care Report to your healthcare provider any signs of infection, such as:: chills, fever and increased pain Visit Report/Discharge Packet Stand Alone Forms: Patient Portal/API Discharge Data Primary Care Provider: Maylin Wilson Attending Provider: Barron Dowling Admit Date/Time: 03/08/23 15:59
--- NOTE | 2023-03-10 12:30 | PC.NURSE ---
Pt is A&Ox2, forgetful, confused and pleasant. She declines an appetite and to eat any food this a.m. She doesn't remember to use the call light and gets out of bed with unsteady gait to go to the bathroom. She forgets that her has passed and asks mulitple times where he is.She is medically cleared for discharge this a.m. by the hospitalist, and daughter is notified. She arrives at bedside this a.m. to escort patient back to [place]. Discharge paper work given to the daughter and patient escorted to [facility] via w/ with all of her belongings. She is assisted into her daughter's vehicle and transported to back to [place] at approximately noon today.
== END 2023-03-10 12:00 | disposition home or self-care (01) ==
LOC: ED 15:25 → AC 15:59
PROVIDERS: Hospitalist; Admitting Provider Student in an Organized Health Care Education/Training Program; Emergency Provider Emergency Medicine; PCP Internal Medicine; Referring Provider Emergency Medicine; Visit Provider Student in an Organized Health Care Education/Training Program
DX: R53.1 Weakness (principal); R00.2 Palpitations; I16.0 Hypertensive urgency; K59.00 Constipation, unspecified; G30.9 Alzheimer's disease, unspecified; F02.80 Dementia in other diseases classified elsewhere, unspecified severity, without behavioral disturbance, psychotic disturbance, mood disturbance, and anxiety; E03.9 Hypothyroidism, unspecified; E78.5 Hyperlipidemia, unspecified; I10 Essential (primary) hypertension; Z20.822 Contact with and (suspected) exposure to COVID-19
CPT/HCPCS: 36415; 70450; 71045; 71260; 74177; 80048; 80053; 81001; 81003; 82550; 83605; 83735; 84145; 84439; 84443; 84484; 85025; 87633; 93005; 93306; 96361; 96372; 96374; 96375; 96376; 97116; 97162; 97166; 97535; 99285; G0378; J0360; J1650; J2060; J2405; J2765; J3475; Q9967

== ENCOUNTER → 2023-05-09 07:08 | Outpatient (ROUT) | payer MEDICARE, OTHER, MEDICAID, SELFPAY ==
[2023-03-08 16:46] VITALS: BMI 18.3
[2023-05-09 07:30] LABS: BUN Creatinine Ratio 32.8 (6-22); Blood Urea Nitrogen 21 mg/dL (7-17); Calcium 9.2 mg/dL (8.4-10.2); Carbon Dioxide 27 mmol/L (22-32); Chloride 105 mmol/L (98-107); Cholesterol 264 mg/dL (140-199); Estimated Glomerular Filt Rate > 60 mL/min (>60); Glucose 100 mg/dL (80-110); HDL Cholesterol 63 mg/dL (40-60); HEMOLYSIS < 15 (0-50); LDL Cholesterol Calculated 183 mg/dL (<100); Potassium 4.3 mmol/L (3.4-5.1); Sodium 136 mmol/L (137-145); Triglycerides 90 mg/dL (35-150)
== END ==
PROVIDERS: PCP Internal Medicine; Visit Provider Nurse Practitioner Gerontology
DX: E78.5 Hyperlipidemia, unspecified (principal); I10 Essential (primary) hypertension
CPT/HCPCS: 36415; 80048; 80061

== ENCOUNTER → 2023-11-07 07:17 | Outpatient (ROUT) | payer MEDICARE, OTHER, MEDICAID, SELFPAY ==
[2023-03-08 16:46] VITALS: BMI 18.3
[2023-11-07 08:27] LABS: Thyroid Stimulating Hormone 0.508 uIU/mL (0.47-4.68)
== END ==
PROVIDERS: PCP Internal Medicine; Visit Provider Nurse Practitioner Gerontology
DX: E03.9 Hypothyroidism, unspecified (principal)
CPT/HCPCS: 36415; 84443

== ENCOUNTER → 2024-02-13 07:16 | Outpatient (ROUT) | payer MEDICARE, OTHER, MEDICAID, SELFPAY ==
[2023-03-08 16:46] VITALS: BMI 18.3
[2024-02-13 08:07] LABS: Add Manual Diff / Slide Review NO; Basophils Absolute Auto 0 /uL (0-100); Basophils Percent Auto 0.6 % (0-2); Eosinophils Absolute Auto 200 /uL (0-450); Eosinophils Percent Auto 3.3 % (2-4); Hematocrit 37.8 % (36-46); Hemoglobin 12.7 g/dL (12.0-16.0); Lymphocytes Absolute Auto 1700 /uL (1100-4500); Lymphocytes Percent Auto 35.2 % (25-40); Mean Corpuscular HGB Conc 33.5 % (30-36); Mean Corpuscular Hemoglobin 32.4 PG (26-34); Mean Corpuscular Volume 96.7 fL (80-100); Monocytes Absolute Auto 500 /uL (0-900); Monocytes Percent Auto 9.6 % (3-14); Neutrophils Absolute Auto 2400 /uL (1500-7000); Neutrophils Percent Auto 51.3 % (50-75); Platelet Count 216 X10^3/uL (150-400); Red Blood Cell Count 3.91 X10^6/uL (4.0-5.2); Red Cell Distribution Width 13.9 % (11.6-14.8); White Blood Cell Count 4.8 X10^3/uL (4.5-11.0)
[2024-02-13 08:53] LABS: BUN Creatinine Ratio 34.9 (6-22); Blood Urea Nitrogen 22 mg/dL (7-17); Calcium 9.9 mg/dL (8.4-10.2); Carbon Dioxide 28 mmol/L (22-32); Chloride 107 mmol/L (98-107); Estimated Glomerular Filt Rate > 60 mL/min (>60); Glucose 105 mg/dL (80-110); HEMOLYSIS < 15 (0-50); Potassium 4.2 mmol/L (3.4-5.1); Sodium 138 mmol/L (137-145)
[2024-02-13 09:22] LABS: Thyroid Stimulating Hormone 0.338 uIU/mL (0.47-4.68)
== END ==
PROVIDERS: PCP Internal Medicine; Visit Provider Internal Medicine
DX: E03.9 Hypothyroidism, unspecified (principal); I10 Essential (primary) hypertension
CPT/HCPCS: 36415; 80048; 84443; 85025

== ENCOUNTER → 2024-07-10 18:29 | Outpatient (ROUT) | payer MEDICARE, OTHER, MEDICAID, SELFPAY ==
[2023-03-08 16:46] VITALS: BMI 18.3
[2024-07-10 18:42] LABS: Appearance Urine UA SL CLOUDY; Bilirubin Urine UA NEGATIVE (NEGATIVE); Color Urine UA YELLOW; Glucose Urine UA NEGATIVE (Negative); Ketones Urine UA NEGATIVE (NEGATIVE); Leukocyte Esterase Urine UA TRACE (NEGATIVE); Nitrite Urine UA POSITIVE (Negative); Occult Blood Urine UA NEGATIVE (Negative); Protein Urine UA NEGATIVE (Negative); Specific Gravity Urine UA 1.015 (1.000-1.035)
[2024-07-10 18:43] LABS: pH Urine UA 6.5 (4.5-8.0)
[2024-07-10 18:51] LABS: Bacteria Urine Many (>30); RBC Urine None Seen (0-5/HPF); Urine Volume 10mL (spun); WBC Urine 5-10/HPF (0-5/HPF)
[2024-07-10 18:52] LABS: Culture Indicated Urine Specimen Cultured; Squamous Epithelial Cell Urine 1-5 /HPF (0-5/HPF)
== END ==
PROVIDERS: PCP Internal Medicine; Visit Provider Registered Nurse
DX: F03.90 Unspecified dementia, unspecified severity, without behavioral disturbance, psychotic disturbance, mood disturbance, and anxiety (principal); G30.1 Alzheimer's disease with late onset; E03.9 Hypothyroidism, unspecified; R63.4 Abnormal weight loss; S32.10XA Unspecified fracture of sacrum, initial encounter for closed fracture
CPT/HCPCS: 81001; 87077; 87086; 87186